=== PATIENT | female | born 1980 | race Caucasian/White ===

== ENCOUNTER 2024-10-09 15:57 | Outpatient (CLI) | payer BC, SELFPAY | END 2024-10-09 15:58 | disposition home or self-care (01) | LOC: NFLDREF 10-11 02:40 | PROVIDERS: PCP Physician Assistant Medical; Visit Provider Physician Assistant Medical | DX: R35.0 Frequency of micturition (principal) | CPT/HCPCS: 87086 ==

== ENCOUNTER 2024-10-18 19:17 | Emergency (ER) | payer BC, SELFPAY ==
--- OUTSIDE RECORDS SUMMARY | 2024-10-18 19:20 | XMS_ITS | Encounter Summary ---
[facility] Address [address] [place] [address] Care Team Providers Care Rough Carpenter Name Role Phone No Primary/Referring, Phy Primary Care Provider Unavailable Encounter Details Date Type Department Care Team (Late st Contact Info) Description 12/19/2011 Correspondence None No Primary/Referring, Phy MEDICAL EQUIPMENT PROOF OF DELIVERY Social History Tobacco Use Types Packs/Day Years Used Date Smoking Tobacco: Never Assessed Comments No Sex and Gender Information Value Date Recorded Sex Assigned at Not on file Legal Sex Female 7:12 AM CDT Gender Identity Not on file Sexual Orientation Not on file documented as of this encounter Progress Notes * No Primary/Referring, Phy - 12/19/2011 12:00 AM CDT documented in this encounter Plan of Treatment Not on file documented as of this encounter Visit Diagnoses Not on filedocumented in this encounter Care Teams Rough Carpenter Relationship Specialty Start Date End Date No Primary/Referring, Phy PCP - General 11/19/14 documented as of this encounter
--- OUTSIDE RECORDS SUMMARY | 2024-10-18 19:20 | XMS_ITS | Encounter Summary ---
Author Organization [facility] Address [address] [place] [address] Care Team Providers Care Sheriffs Name Role Phone Anisa Lorenz PA-C Primary Care Provider [phone] No Ref-Primary, Physician Primary Care Provider Kane Louis MD Unavailable [phone] Anisa Lorenz PA-C Unavailable Renee Angeles DIRECTOR GENERAL Primary Care Prov ider Anisa Lorenz PA-C Unavailable Katie Disla MD Unavailable Anisa Lorenz PA-C Unavailable Katie Disla MD Unavailable Reason for Visit * Reason Onset Date Comments MyChart Communication 12/03/2014 refill cyc lobenzaprine Encounter Details Date Type Department Care Team (Late st Contact Info) Description 12/03/2014 MyC Medical Advice [facility] [address] [place] [address] Anisa Lorenz PA-C [address] [facility] [place] [address] [place], [place] [id number] MyChart Communication (refill cyclobenzapr... 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 Gender Identity Not on file Sexual Orientation Not on file documented as of this encounter Plan of Treatment Not on file documented as of this encounter Visit Diagnoses Diagnosis Acute low back pain- Primary Lumbago documented in this encounter Care Teams Sheriffs Relationship Specialty Start Date End Date Anisa Lorenz PA-C PCP - General Physician Retail Brand Ambassador 09/19/13 12/01/17 No Ref-Primary, Physician PCP - General 12/02/17 08/07/18 Anisa Lorenz PA-C [address] [place] [id number] PCP - Assigned PCP 08/18/13 08/23/18 Renee Angeles NP [facility] [address] [place] [address] PCP - General Nurse Practitioner - Adult Health 08/08/18 Kane Louis MD Ophthalmology 12/02/17 Anisa Lorenz PA-C [address] [place] [address] Assigned PCP 08/18/13 11/19/18 Katie Disla MD [address] [facility] [place] [id number] Assigned PCP 11/20/18 11/18/19 Anisa Lorenz PA-C [address] [address] Assigned PCP 11/19/19 07/20/20 Katie Disla MD [address] [facility] [place] [address] Assigned PCP 07/21/20 11/21/21 documented as of this encounter
--- OUTSIDE RECORDS SUMMARY | 2024-10-18 19:20 | XMS_ITS | Encounter Summary ---
Author Organization [facility] Address [address] [place] [address] Care Team Providers Care Manager Residential Name Role Phone No Primary/Referring, Phy Primary Care Provider Unavailable Encounter Details Date Type Department Care Team (Late st Contact Info) Description 09/26/2024 Notes/Orders Security Contact Ish Davalos, IFEOMA, FOREST LANDSCAPE ECOLOGY PROFESSOR [address] [place] [address] Encounter for long-term (current) use of medications (Primary Dx) Social History Tobacco Use Types Packs/Day Years Used Date Smoking Tobacco: Former Smokeless Tobacco: Never Alcohol Use Standard Drinks/Week Comments Not Currently 0 (1 standard drink = 0.6 oz pur e alcohol) AUDIT-C Answer Date Recorded Q1: How often do you have a drink containing alc ohol? 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
--- OUTSIDE RECORDS SUMMARY | 2024-10-18 19:20 | XMS_ITS | Encounter Summary ---
Author Organization [facility] Address [address] [place] [address] Care Team Providers Care Managing Editor Name Role Phone Anisa Lorenz PA-C Primary Care Provider [phone] No Ref-Primary, Physician Primary Care Provider Kane Louis MD Unavailable [phone] Anisa Lorenz PA-C Unavailable Renee Angeles LEAD CARPENTER Primary Care Prov ider Anisa Lorenz PA-C Unavailable Katie Disla MD Unavailable Anisa Lorenz PA-C Unavailable Katie Disla MD Unavailable Reason for Visit * Reason Onset Date Comments Refill Request 11/05/2013 lorazepam Encounter Details Date Type Department Care Team (Late st Contact Info) Description 11/05/2013 MyC Refill [facility] [address] [place] [address] Anisa Lorenz PA-C [address] [facility] [address] [place], [place] [id number] Refill Request (lorazepam) Social History Tobacco Use Types Packs/Day Years Used Date Smoking Tobacco: Former Smokeless Tobacco: Never Comments:quit 2006 Alcohol Use Standard Drinks/Week Comments Yes 0 (1 standard drink = 0.6 oz pur e alcohol) rarely Comments No Sex and Gender Information Value Date Recorded Sex Assigned at Not on file 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 Last OV and filled 10/25/13, qty 30. Unable to refill per SO protocol, to for auth. * Telephone Encounter - Ana Estrada RN - 11/06/2013 10:00 AM CDTMessage from [facility]: Original authorizing provider: Anisa Lorenz PA-C, NORA Bridges would like a refill of the following medications: LORazepam (ATIVAN) 1 MG tablet [Anisa Lorenz PA-C, NORA] Preferred pharmacy: [facility] [address] [address] Comment: documented in this encounter Plan of Treatment Not on file documented as of this encounter Visit Diagnoses Diagnosis ANNA (generalised anxiety disorder) Generalized anxiety disorder documented in this encounter Care Teams Managing Editor Relationship Specialty Start Date End Date Anisa Lorenz PA-C PCP - General Physician Labor Economics Teacher 09/19/13 12/01/17 No Ref-Primary, Physician PCP - General 12/02/17 08/07/18 Anisa Lorenz PA-C [address] [place] [address] PCP - Assigned PCP 08/18/13 08/23/18 Renee Angeles, [facility] [address] [place] [address] PCP - General Nurse Practitioner - Adult Health 08/08/18 Kane Louis MD Ophthalmology 12/02/17 Anisa Lorenz PA-C [address] [place] [address] Assigned PCP 08/18/13 11/19/18 Katie Disla MD [address] [place] [address] Assigned PCP 11/20/18 11/18/19 Anisa Lorenz PA-C [address] [place] [address] Assigned PCP 11/19/19 07/20/20 Katie Disla MD [address] [place] [address] Assigned PCP 07/21/20 11/21/21 documented as of this encounter
--- OUTSIDE RECORDS SUMMARY | 2024-10-18 19:20 | XMS_ITS | Encounter Summary ---
Author Organization [facility] Address [address] [place] [address] Care Team Providers Care Heavy Forger Name Role Phone Criss Pathak MD Primary Care Provider Anisa Lorenz PA-C Primary Care Provider [phone] No Ref-Primary, Physician Primary Care Provider Kane Louis MD Unavailable [phone] Anisa Lorenz PA-C Unavailable Renee Angeles NP Primary Care Prov ider Anisa Lorenz PA-C Unavailable Katie Disla MD Unavailable [phone] Anisa Lorenz PA-C Unavailable [phone] Katie Disla MD Unavailable Encounter Details Date Type Department Care Team (Late st Contact Info) Description 07/25/2013 [facility] [address] [address] Jeancarlos Castellano Social History Tobacco Use Types Packs/Day Years Used Date Smoking Tobacco: Former Smokeless Tobacco: Never Comments:quit 2006 Alcohol Use Standard Drinks/Week Comments Yes 0 (1 standard drink = 0.6 oz pur e alcohol) rarely Comments No Sex and Gender Information Value Date Recorded Sex Assigned at Not on file 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 Sex Female 4:17 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 Gender Identity Not on file Sexual Orientation Not on file documented as of this encounter Plan of Treatment Not on file documented as of this encounter Visit Diagnoses Not on filedocumented in this encounter Care Teams Heavy Forger Relationship Specialty [place] [address] [place] [address] PCP - General Family Practice 08/01/10 09/18/13 Anisa Lorenz PA-C [address] [place] [address] PCP - General Physician Oyster Culturist 09/19/13 12/01/17 No Ref-Primary, Physician PCP - General 12/02/17 08/07/18 Anisa Lorenz PA-C [address] [place] [address] PCP - Assigned PCP 08/18/13 08/23/18 Renee Angeles NP [facility] [address] [place] [address] PCP - General Nurse Practitioner - Adult Health 08/08/18 Kane Louis MD Ophthalmology 12/02/17 Anisa Lorenz PA-C [address] [place] [id number] Assigned PCP 08/18/13 11/19/18 Katie Disla MD [address] [facility] [place] [id number] Assigned PCP 11/20/18 11/18/19 Anisa Lorenz PA-C [address] [address] Assigned PCP 11/19/19 07/20/20 Katie Disla MD [address] [place], [place] [id number] Assigned PCP 07/21/20 11/21/21 documented as of this encounter
--- OUTSIDE RECORDS SUMMARY | 2024-10-18 19:20 | XMS_ITS | Encounter Summary ---
Author Organization [facility] Address [address] [place] [address] Care Team Providers Care Paper Products Supervisor Name Role Phone Anisa Lorenz PA-C Primary Care Provider [phone] No Ref-Primary, Physician Primary Care Provider Kane Louis MD Unavailable [phone] Anisa Lorenz PA-C Unavailable Renee Angeles CARE MANAGER Primary Care Prov ider Anisa Lorenz PA-C Unavailable Katie Disla MD Unavailable Anisa Lorenz PA-C Unavailable Katie Disla MD Unavailable Reason for Visit * Reason Onset Date Comments MyChart Communication 10/13/2013 zoloft Encounter Details Date Type Department Care Team (Late st Contact Info) Description 10/13/2013 MyC Medical Advice [facility] [address] [place] [address] Anisa Lorenz PA-C [address] [facility] [address] [place], [place] [address] MyChart Communication (zoloft) 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 Gender Identity Not on file Sexual Orientation Not on file documented as of this encounter Plan of Treatment Not on file documented as of this encounter Visit Diagnoses Not on filedocumented in this encounter Care Teams Paper Products Supervisor Relationship Specialty Start Date End Date Anisa Lorenz PA-C PCP - General Physician In Service Educator 09/19/13 12/01/17 No Ref-Primary, Physician PCP - General 12/02/17 08/07/18 Anisa Lorenz PA-C [address] [place] [id number] PCP - Assigned PCP 08/18/13 08/23/18 Renee Angeles NP [facility] [address] [place] [id number] PCP - General Nurse Practitioner - Adult Health 08/08/18 Kane Louis MD Ophthalmology 12/02/17 Anisa Lorenz PA-C [address] [place] [address] Assigned PCP 08/18/13 11/19/18 Katie Disla MD [address] [facility] [place] [address] Assigned PCP 11/20/18 11/18/19 Anisa Lorenz PA-C [address] [facility] [facility] [address] [place] [address] Assigned PCP 11/19/19 07/20/20 Katie Disla MD [facility] [facility] [address] Assigned PCP 07/21/20 11/21/21 documented as of this encounter
--- OUTSIDE RECORDS SUMMARY | 2024-10-18 19:20 | XMS_ITS | Encounter Summary ---
Author Organization [facility] Address [address] [place] [address] Care Team Providers Care Drying Machine Operator Name Role Phone No Primary/Referring, Phy Primary Care Provider Unavailable Encounter Details Date Type Department Care Team (Late st Contact Info) Description 10/03/2024 11:10 AM CDT Lab Visit Laboratory at [facility] [id number] [place] [phone] Encounter for long-term (current) use of medications Social History Tobacco Use Types Packs/Day Years [...] on file documented as of this encounter Procedures Procedure Name Priority Date/Time Associated Diagnosis Comments RAPID DRUG PANEL, URINE Routine 10/03/2024 11:05 AM CDT Encounter for long-term (current) use of medications documented in this encounter Results * (ABNORMAL) Rapid Drug Panel, Urine with THC (10/03/2024 11:05 AM CDT) [facility] Amphetamines Screen Not Detected Not Detected 10/04/2024 7:00 AM [facility] Barbiturates Screen Not Detected Not Detected 10/04/2024 7:00 AM [facility] Benzodiazepines Screen Presumptive Positive(A) Not Detected 10/04/2024 7:00 AM [facility] Buprenorphine Screen Not Detected Not Detected 10/04/2024 7:00 AM [facility] Cocaine Metabolite Screen Not Detected Not Detected 10/04/2024 7:00 AM [facility] Methadone Screen Not Detected Not Detected 10/04/2024 7:00 AM [facility] Opiates Screen Not Detected Not Detected 10/04/2024 7:00 AM [facility] Oxycodone Screen Not Detected Not Detected 10/04/2024 7:00 AM [facility] Phencyclidine (PCP) Screen Not Detected Not Detected 10/04/2024 7:00 AM [facility] THC (Marijuana) Metab Screen Not Detected Not Detected 10/04/2024 7:00 AM [facility] Creatinine, Urine, Random 170 >20 mg/dL 10/04/2024 7:00 AM [facility] Urine Non-blood Collection / Unknown 10/03/2024 11:05 AM T 10/03/2024 11:05 AM [facility] - 10/04/2024 7:00 AM [facility] The absence of expected drug(s) and/or drug metabolite(s) may indicate non-compliance, inappropriate timing of specimen collection relative to drug administration, poor drug absorption, diluted/adulterated urine or limitations of testing. The concentration must be greater than or equal to the cutoff concentration to be reported as positive. For medical purposes only: not valid for forensic, legal, or employment use. us Ish Davalos PUBLIC AID ELIGIBILITY ASSISTANT, WILDLAND FIRE FIGHTER SPECIALIST LAB_[address] Final Result [address] [address], [facility] documented in this encounter Visit Diagnoses Diagnosis Encounter for long-term (current) use of medications Encounter for long-term (current) use of other medications documented in this encounter Care Teams Drying Machine Operator Relationship Specialty Start Date End Date No Primary/Referring, Phy PCP - General 11/19/14 documented as of this encounter
--- OUTSIDE RECORDS SUMMARY | 2024-10-18 19:20 | XMS_ITS | Encounter Summary ---
Author Organization [facility] Address [address] [place] [address] Care Team Providers Care Carpenter Maintenance Name Role Phone Criss Pathak MD Primary Care Provider [phone] Anisa Lorenz PA-C Primary Care Provider [phone] No Ref-Primary, Physician Primary Care Provider Kane Louis MD Unavailable [phone] Anisa Lorenz PA-C Unavailable Renee Angeles NP Primary Care Prov ider Anisa Lorenz PA-C Unavailable Katie Disla MD Unavailable Anisa Lorenz PA-C Unavailable [phone] Katie Disla MD Unavailable Encounter Details Date Type Department Care Team (Late st Contact Info) Description 02/10/2011 [facility] [address] [address] Jeancarlos Castellano Social History Tobacco Use Types Packs/Day Years Used Date Smoking Tobacco: Former Smokeless Tobacco: Never Comments:quit 2006 Alcohol Use Standard Drinks/Week Comments Yes 0 (1 standard drink = 0.6 oz pur e alcohol) rarely Comments No Sex and Gender Information Value Date Recorded Sex Assigned at Not on file 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 Gender Identity Not on file Sexual Orientation Not on file documented as of this encounter Plan of Treatment Not on file documented as of this encounter Visit Diagnoses Not on filedocumented in this encounter Care Teams Carpenter Maintenance Relationship Specialty [place] [address] [place] [address] PCP - General Family Practice 08/01/10 09/18/13 Anisa Lorenz PA-C [address] [place] [address] PCP - General Physician English Composition Instructor 09/19/13 12/01/17 No Ref-Primary, Physician PCP - General 12/02/17 08/07/18 Anisa Lorenz PA-C [address] [place] [address] PCP - Assigned PCP 08/18/13 08/23/18 Renee Angeles NP [facility] [address] [place] [address] PCP - General Nurse Practitioner - Adult Health 08/08/18 Kane Louis MD Ophthalmology 12/02/17 Anisa Lorenz PA-C [address] [place] [id number] Assigned PCP 08/18/13 11/19/18 Katie Disla MD [address] [facility] [place] [id number] Assigned PCP 11/20/18 11/18/19 Anisa Lorenz PA-C [address] [address] Assigned PCP 11/19/19 07/20/20 Katie Disla MD [address] [place], [place] [id number] Assigned PCP 07/21/20 11/21/21 documented as of this encounter
--- OUTSIDE RECORDS SUMMARY | 2024-10-18 19:20 | XMS_ITS | Encounter Summary ---
Author Organization [facility] Address [address] [place] [address] Care Team Providers Care Heatset Winder Operator Name Role Phone Anisa Lorenz PA-C Primary Care Provider [phone] No Ref-Primary, Physician Primary Care Provider Kane Louis MD Unavailable [phone] Anisa Lorenz PA-C Unavailable Renee [place] FARM ADVISOR Primary Care Prov ider Anisa Lorenz PA-C Unavailable Katie Disla MD Unavailable Anisa Lorenz PA-C Unavailable Katie Disla MD Unavailable Reason for Referral * Consultation - Closed Specialty Diagnoses / Procedures Referred By Jan clay Referred To Contact Diagnoses Biliary colic Anisa Lorenz PA-C Phone: tel: fax: [facility] [address] Phone: tel: fax: Referral ID Status Reason Start Date Expiration Date Visits Re quested Visits Authorized [id number] Closed 11/29/2015 11/28/2016 1 1 Comments Your provider has referred you to Gastroenterology Services. Procedure/Referral: REFERRAL ONLY - FMG: [facility] (Abby partners with [facility] ([facility]) for consults and referrals. This order will be routed to [facility] for their office to contact the patient to arrange a future appointment. Patients may contact [facility] after 48 hours, if you have not been contacted) - [email or web address]/ Please be aware that coverage of these services is subject to the terms and limitations of your health insurance plan. Call member services at your health plan with any benefit or coverage questions. Any procedures must be performed at a [facility] facility OR coordinated by your clinic's referral office. Please bring the following with you to your appointment: (1) Any X-Rays, CTs or MRIs which have been performed. Contact the facility where they were done to arrange for miner pick prior to your scheduled appointment. Any new CT, MRI or other procedures ordered by your specialist must be performed at a [facility] facility or coordinated by your clinic's referral office. (2) List of current medications (3) This referral request (4) Any documents/labs given to you for this referral Reason for Visit * Reason Onset Date Comments MyChart Communication 11/28/2015 Abdominal pain Encounter Details Date Type Department Care Team (Late st Contact Info) Description 11/28/2015 [facility] Medical Advice [address] [address] Anisa Lorenz PA-C [address] [address] Karley Communication (Abdominal pain) 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 Pathak's note below. Gail Hernadez RN, BSN * Telephone Encounter - Criss Pathak MD - 11/28/2015 3:21 PM CDT Ask if this can wait until tomorrow. Until CJ is back. Criss Pathak MD [facility] [phone] * Telephone Encounter - Lilibeth Hernadez RN - 11/28/2015 2:26 PM CDT Routing to Dr. Pathak to advise in the absence of CJ: Please review/advise on pt's Facet Decision Systemst message. Pt was seen 11/20/15 for abdominal pain, looks like US and labs came back normal. Pt started on Zantac, still experiencing abdominal pain. Please advise ifthis can wait for Anisa when back in office tomorrow or if you have any f/u recommendations. Thanks! Gail Hernadez RN, BSN documented in this encounter Plan of Treatment Scheduled Referrals Name Type Priority Associated Diagnoses Orde r Schedule GASTROENTEROLOGY ADULT REFERRAL +/- PROCEDURE Referral Routine Biliary colic Ordered: 11/29/2015 documented as of this encounter Visit Diagnoses Diagnosis Biliary colic- Primary Calculus of gallbladder without mention of cholecystitis or obstruction documented in this encounter Additional Health Concerns Assessment Noted Time PHQ-9 Depression Total Score: 0 07/26/19 16 7:58 AM CHURN DRILLER documented as of this encounter Care Teams Heatset Winder Operator Relationship Specialty Start Date End Date Anisa Lorenz PA-C PCP - General Physician Dietetic Technician Registered 09/19/13 12/01/17 No Ref-Primary, Physician PCP - General 12/02/17 08/07/18 Anisa Lorenz PA-C [address] [place], [place] [id number] PCP - Assigned PCP 08/18/13 08/23/18 Renee Angeles, [facility] [address] [address] PCP - General Nurse Practitioner - Adult Health 08/08/18 Kane Louis MD Ophthalmology 12/02/17 Anisa Lorenz PA-C [address] [place] [address] Assigned PCP 08/18/13 11/19/18 Katie Disla MD [address] [place] [address] Assigned PCP 11/20/18 11/18/19 Anisa Lorenz PA-C [address] [place] [address] Assigned PCP 11/19/19 07/20/20 Katie Disla MD [address] [place] [address] Assigned PCP 07/21/20 11/21/21 documented as of this encounter
--- OUTSIDE RECORDS SUMMARY | 2024-10-18 19:20 | XMS_ITS | Encounter Summary ---
Author Organization [facility] Address [address] [place] [address] Care Team Providers Care Accounts Payable Technician Name Role Phone Anisa Lorenz PA-C Primary Care Provider [phone] No Ref-Primary, Physician Primary Care Provider Kane Louis MD Unavailable [phone] Anisa Lorenz PA-C Unavailable Renee Angeles SAMPLE GRADER Primary Care Prov ider Anisa Lorenz PA-C Unavailable Katie Disla MD Unavailable Anisa Lorenz PA-C Unavailable Katie Disla MD Unavailable Reason for Visit * Reason Onset Date Comments Refill Request 01/08/2015 Roxanna Dodson Encounter Details Date Type Department Care Team (Late st Contact Info) Description 01/08/2015 [facility] Refill [facility] [address] [place] [address] Anisa Lorenz PA-C [address] [place], [place] [address] Refill Request (Roxanna Dodson) 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 * Telephone Encounter - Maikel Cullen RN - 01/08/2015 2:18 PM CDTMessage from [facility]: Original authorizing provider: Anisa Lorenz PA-C, NORA Funes Cyrus would like a refill of the following medications: lidocaine-prilocaine (EMLA) cream [Anisa Lorenz PA-C, NORA] oxyCODONE-acetaminophen (PERCOCET) 5-325 MG per tablet [Anisa Lorenz PA-C, NORA] Preferred pharmacy: [facility] [address] Comment: Brandon Lorenz- I have my first [facility] appointment next Wednesday. I'm really, really excited. I was told it should only take 3 (4 max) sessions to fully remove my arm band. The other will only take 1 treatment! I have no idea how bad the pain is going to be with this laser. I'm refilling the perocet just because I don't know how this laser is going to feel (I was told this one is a bit worse). I will keep you posted!!! documented in this encounter Plan of Treatment Not on file documented as of this encounter Visit Diagnoses Diagnosis Exposure to laser radiation, subsequent encounter documented in this encounter Care Teams Accounts Payable Technician Relationship Specialty Start Date End Date Anisa Lorenz PA-C PCP - General Physician Occupational Health And Safety Adviser 09/19/13 12/01/17 No Ref-Primary, Physician PCP - General 12/02/17 08/07/18 Anisa Lorenz PA-C [address] [place], [place] [id number] PCP - Assigned PCP 08/18/13 08/23/18 Renee Angeles, [facility] [address] [address] PCP - General Nurse Practitioner - Adult Health 08/08/18 Kane Louis MD MD Ophthalmology 12/02/17 Anisa Lorenz, PA-C [address] [place] [address] Assigned PCP 08/18/13 11/19/18 Katie Disla MD [address] [place] [address] Assigned PCP 11/20/18 11/18/19 Anisa Lorenz, PA-C [address] [place] [address] Assigned PCP 11/19/19 07/20/20 Katie Disla MD [address] [place] [address] Assigned PCP 07/21/20 11/21/21 documented as of this encounter
--- OUTSIDE RECORDS SUMMARY | 2024-10-18 19:20 | XMS_ITS | Clinical Summary ---
Author Organization [facility] Address [address] [place] [address] Care Team Providers Care Bpm Architect Name Role Phone No Primary/Referring, Phy Primary Care Provider Unavailable Source Comments You are receiving this document as you are listed as the primary care provider,follow-up provider, or the patient has been referred to you for consultation.This is in compliance with the Medicare andMedicaid EHR Incentive Program,which states Providers who transition their patient to another setting of careor provider of care or refers their patient to another provider of care shouldprovide summary care record for each transition of care or referral. [employer] Allergies Active Allergy Reactions Criticality Noted Date Comments Fluoxetine Confusion 09/04/2002 PN: LW Reaction: panic attacks, decrease sleep Serotonin syndrome Promethazine Hcl Other, see comments 09/29/2005 anxiety, paranoia Prochlorperazine Other, see comments,Hives High 09/29/2005 anxiety, paranoia Phenagran--anxiety anxiety, paranoia Phenagran--anxiety Phenagran--anxiety Promethazine Hives,Other, see comments High 09/04/2002 PN: LW Reaction: panic attacks anxiety, paranoia Medications diazePAM (VALIUM) 10 MG tablet Take 1.5 Tablets (15 mg) by mouth at bedtime as needed. Active metoprolol tartrate (LOPRESSOR) 25 MG tablet Take 12.5 mg in the AM and 25 mg in the PM 135 Tablet 11 12/31/2020 Active amphetamine-dex troamphetamine (ADDERALL) 10 MG tablet Take 1 Tablet (10 mg) by mouth as needed. 09/01/2022 Active amoxicillin-cla vulanate (AUGMENTIN) 875-125 mg per tablet Take 1 Tablet by mouth two times a day. 03/11/2024 Active butalbital-acet aminophen-caffe ine (FIORICET) 50-325-40 MG tablet Take by mouth. 03/16/2024 Active cyclobenzaprine (FLEXERIL) 10 MG tablet Take 1 Tablet (10 mg) by mouth daily at bedtime. 01/18/2024 Active triamcinolone acetonide (KENALOG) 0.1 % paste Place onto teeth. 10/25/2023 Active diazePAM (VALIUM) 5 MG tablet Take 2 Tablets (10 mg) by mouth two times a day. 02/22/2024 Active amphetamine-dex troamphetamine (ADDERALL) 5 MG tablet Take 1 Tablet (5 mg) by mouth two times a day. 02/18/2024 Active amphetamine-dex troamphetamine (ADDERALL) 20 MG tablet Take 1 Tablet (20 mg) by mouth daily. 11/10/2023 Active Semaglutide (OZEMPIC, 0.25 OR 0.5 MG/DOSE, SC) Active ciprofloxacin-h ydrocortisone (CIPRO HC OTIC) 0.2-1 % ear drop suspensionnIndi cations:Acute diffuse otitis externa of both ears Place 3 Drops into both ears two times a day. 10 mL 03/16/2024 Active gabapentin (NEURONTIN) 100 MG capsule Take 1-3 Capsules (100-300 mg) by mouth three times a day. 90 Capsule 05/20/2024 Active tiZANidine (ZANAFLEX) 2 MG tablet Take 1-2 Tablets (2-4 mg) by mouth every 8 hours as needed (back pain, muscle spasm). 20 Tablet 05/20/2024 Active Active Problems Problem Noted Date Diagnosed Date Paroxysmal atrial fibrillation 12/11/2020 Elevated blood pressure read ing without diagnosis of hypertension 12/11/2020 ANNA (generalized anxiety disorder) 12/11/2020 Other chronic pain 04/29/2015 Anxiety 01/16/2013 Lumbago 12/17/2008 Overview (02/10/2017): Pain Low Back Attention deficit disorder 08/17/2007 Pain in thoracic spine 08/17/2007 Overview (02/10/2017): Pain Back Thoracic Migraine headache 03/03/2001 Overview (11/19/2022): (Problem list name updated by automated process. Provider to review and confirm.) Encounters Date Type Department Care Team Description 10/03/2024 11:10 AM CDT Lab Visit Laboratory at [address] [address] Encounter for long-term (current) use of medications 09/26/2024 Notes/Orders Security Contact Ish Davalos, MOVING WORKER, POLYGRAPH EXAMINER Encounter for long-term (current) use of medications (Primary Dx) from Last 3 Months Immunizations Immunization Administration Dates Next Due MMR 02/05/1992 TDAP (ADACEL) 03/21/2008 Tdap 07/20/2012 Social History Tobacco Use Types Packs/Day Years [...] Not on file N ot on file Last Filed Vital Signs Vital Sign Reading Time Taken Comments Blood Pressure 117/95 03/16/2024 8:11 PM CDT Pulse 104 03/16/2024 8:11 PM CDT Temperature 36.9 C (98.5 F) 05/20/2024 12:45 PM ASSEMBLER FAUCETS Respiratory Rate 17 03/16/2024 7:32 PM CDT Oxygen Saturation 100% 03/16/2024 7:32 PM CDT Inhaled Oxygen Concentration - - Weight 63 kg (139 lb) 05/20/2024 12:45 PM ASSEMBLER FAUCETS Height 160 cm (5' 3) 05/20/2024 12:45 PM ASSEMBLER FAUCETS Body Mass Index 24.62 05/20/2024 12:45 PM ASSEMBLER FAUCETS Plan of Treatment Health Maintenance Due Date Last Done Comments Colon Cancer Screening Plan Due 1979 Hep C Screening (Preventive Services) 1979 Adult Preventive Visit 1997 HepB Vaccine (1) 1998 Cervical Cancer Screening Due 01/31/2008 01/30/2008 DTaP/Tdap/Td Vaccine (3 - Tdap) 07/20/2022 07/20/2012, 03/21/2008 Mammogram 03/03/2023 03/03/2022, 01/25/2015 Cholesterol 02/18/2024 06/07/2006, 09/29/2005, 08/12/2005 COVID-19 Vaccine (3 - 2023-2 5 season) 2024 10/23/2020, 08/19/2020 Influenza Vaccine (#1) 2024 Zoster/Shingles Vaccine (1 o f 2) 2029 HIV Screening (Preventive Services) Completed 08/19/2005 HPV Vaccine Aged Out No longer eligi ble based on patient's age to complete this topic HepA Vaccine Aged Out No longer eligi ble based on patient's age to complete this topic Hib Vaccine Aged Out No longer eligi ble based on patient's age to complete this topic IPV (Polio) Vaccine Aged Out No longe r eligible based on patient's age to complete this topic MCV4 Vaccine Aged Out No longer eligi ble based on patient's age to complete this topic Meningococcal B Vaccine Aged Out No l onger eligible based on patient's age to complete this topic Pneumococcal Vaccine Aged Out No long er eligible based on patient's age to complete this topic Procedures Procedure Name Priority Date/Time Associated Diagnosis Comments RAPID DRUG PANEL, URINE Routine 10/03/2024 11:05 AM CDT Encounter for long-term (current) use of medications ANATOMICAL PATH LIQUID BASED Routine 01/30/2008 9:32 AM CDT LIPID PANEL & DIRECT LDL (IF NEEDED) Routine 06/07/2006 10:55 AM ASSEMBLER FAUCETS HIV ANTIBODY Routine 08/19/2005 7:35 AM ASSEMBLER FAUCETS from Last 3 Months or Most Recently Relevant to Health Maintenance Results * (ABNORMAL) Rapid Drug Panel, Urine with THC (10/03/2024 11:05 AM CDT) [facility] Amphetamines Screen Not Detected Not Detected 10/04/2024 7:00 AM [facility] Barbiturates Screen Not Detected Not Detected 10/04/2024 7:00 AM [facility] Benzodiazepines Screen Presumptive Positive(A) Not Detected 10/04/2024 7:00 AM [facility] Buprenorphine Screen Not Detected Not Detected 10/04/2024 7:00 AM [facility] Cocaine Metabolite Screen Not Detected Not Detected 10/04/2024 7:00 AM [facility] Methadone Screen Not Detected Not Detected 10/04/2024 7:00 AM [facility] Opiates Screen Not Detected Not Detected 10/04/2024 7:00 AM [facility] Oxycodone Screen Not Detected Not Detected 10/04/2024 7:00 AM [facility] Phencyclidine (PCP) Screen Not Detected Not Detected 10/04/2024 7:00 AM [facility] THC (Marijuana) Metab Screen Not Detected Not Detected 10/04/2024 7:00 AM [facility] Creatinine, Urine, Random 170 >20 mg/dL 10/04/2024 7:00 AM [facility] Urine Non-blood Collection / Unknown 10/03/2024 11:05 AM CDT 10/03/2024 11:05 AM [facility] - 10/04/2024 7:00 AM CDT The absence of expected drug(s) and/or drug metabolite(s) may indicate non-compliance, inappropriate timing of specimen collection relative to drug administration, poor drug absorption, diluted/adulterated urine or limitations of testing. The concentration must be greater than or equal to the cutoff concentration to be reported as positive. For medical purposes only: not valid for forensic, legal, or employment use. us Ish Davalos APRN, POLYGRAPH EXAMINER LAB_1 [place] [address], [facility] * Pap Smear (01/30/2008 9:32 AM CDT) PAP Smear Liquid Based SEE TEXT No normal range HP CONVERSION Comment: Patient: ROSALIEN BRIDGES CERVICAL CYTOLOGY REPORT Pathology # [id number] Date Obtained: Date Received: CYTOLOGIC IMPRESSION: Negative for intraepithelial lesion or malignancy. Verified 02/02/08 by: MADISON (electronic signature) ADDITIONAL DATA LMP: CLINICAL HIST LIQUID BASED PAP CERVICAL SPECIMEN ADEQUACY: Satisfactory. ENDOCERVICAL CELLS: Present. 01/30/2008 9:32 AM CDT Ish Escobar MD LAB_1 Final Result HP CONVERSION * Lipid Panel and Direct LDL(If Needed) (06/07/2006 10:55 AM ASSEMBLER FAUCETS) Cholesterol/HDL Ratio Screen 3.1 No normal range HP CONVERSION Cholesterol 156 <200 mg/dL HP CONVERSION HDL Cholesterol 51 40 - 60 mg/dL HP CONVERSION Triglycerides 54 0 - 149 mg/dL HP CONVERSION LDL Calculated 94 0 - 130 mg/dL HP CONVERSION Comment: 06/07/2006 10:5 5 AM ASSEMBLER FAUCETS Ish Flores MD LAB_1 Final Result Performing Organization Address City/State/[facility] Co de Phone Number HP CONVERSION * HIV 1/2 ANTIBODY (08/19/2005 7:35 AM ASSEMBLER FAUCETS) HIV 1/2 Antibody Non-React hugo NR REGIONS Comment:Performed at [facility] 08/19/2005 7:35 AM ASSEMBLER FAUCETS 08/19/2005 7:49 AM ASSEMBLER FAUCETS Keiko Albright PA-C LAB_1 Final Result [place], [place] [phone] from Last 3 Months or Most Recently Relevant to Health Maintenance Care Teams Bpm Architect Relationship Specialty Start Date End Date No Primary/Referring, Phy PCP - General 11/19/14
--- OUTSIDE RECORDS SUMMARY | 2024-10-18 19:20 | XMS_ITS | Patient Health Record ---
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 Name Role Phone Renee Angeles Primary Care Provider Ritesh Dodd Unavailable [phone] Kelechi Malik Unavailable [phone] Regina Roy Unavailable [phone] Chris Marmolejo Unavailable [phone] Key Medina Unavailable [phone] Nadira Gilbert Unavailable [phone] Nia Sam Unavailable [phone] Chris Allen Unavailable [phone] Allergies Allergen (clinical drug ingredient) Drug/Non Drug Allergy documented on EMR Reaction Allergy Type Onset Date Status Compazine (uncoded) Hives Allergy Active promethazine Phenergan (uncoded) Hives Allergy Active Substance with serotonin re-uptake inhibitor mechanism of action (substance) SSRI's (uncoded) Seretonin Syndrome Allergy Active Reason For Referral Reason REHAB PT and OT: MED X CERVICAL-LUMBAR Diagnosis 1 Low back pain, unspe cified (M54.50) Diagnosis 2 Radiculopathy, lumba r region (M54.16) Diagnosis 3 Pain in thoracic spi ne (M54.6) Diagnosis 4 Cervicalgia (M54.2) Diagnosis 5 Cervicogenic headach e (G44.86) Diagnosis 6 Migraine without aur a and without status migrainosus, not intractable (G43.009) Referral Organization [facility] Referring Provider First Name Ritesh Referring Provider Last Name Jose Referring Provider Speciality Occupation al Medicine Referred Organization [facility] Referred Provider Carol Mayer Referred Address [address], [place],[address], Referred Provider Specialty Rehabilitati on General Notes Lucero Dumont 05/25/20 10:43:01 AM >HP no PA req. OK to schedule, Trixie Sanchez 05/25/2024 10:51:31 AM >Pt scheduled Referral Priority Routine Medications Medication SIG (Take, Route, Frequency, Duration) Notes Start Date End Date Status Testosterone 25 MG/2.5GM (1%) 2 packets to skin in the morning to shoulder, upper arms or abdomen Transdermal Once a day Active diazePAM 20 MG as directed Rectal Active Metoprolol Succinate 25 MG 1 capsule Orally Once a day Active Acetaminophen-Codeine #3 Not-Taking Social History Tobacco Use: Social History Observation Description Date Details (start date - stop date) Never Smoker NA - NA Tobacco Control (Standard) Question Answer Notes Tobacco use: Nonsmoker AUDIT-C (Standard) Question Answer Notes Did you have a drink contain ing alcohol in the past year? Yes How often did you have six o r more drinks on one occasion in the past year? Less than monthly (1 point) How many drinks did you have on a typical day when you were drinking in the past year? 1 or 2 drinks (0 point) How often did you have a dri nk containing alcohol in the past year? Monthly or less (1 point) Points 2 Interpretation Negative Problems Problem Type SNOMED Code ICD Code Onset Dates Problem Status W/U Status Risk Notes Problem Migraine with aura (9756752) Migraine with aura, not intractable, without status migrainosus (G43.109) Active confirmed Problem Scoliosis (520982199) Scoliosis, unspecified (M41.9) Active confirmed Problem Lumbar radiculopathy (161664433) Radiculopathy, lumbar region (M54.16) Active confirmed Problem Cervicalgia (48933959) Cervicalgia (M54.2) Active confirmed Problem Pain in thoracic spine (695469468) Pain in thoracic spine (M54.6) Active confirmed Problem Spasm of back muscles (949269088) Muscle spasm of back (M62.830) Active confirmed Problem Cervicogenic headache (141568766) Cervicogenic headache (G44.86) Active confirmed Problem Low back pain (605599558) Low back pain, unspecified (M54.50) Active confirmed Problem Migraine without aura, not refractory (583776266) Migraine without aura and without status migrainosus, not intractable (G43.009) Active confirmed Vital Signs Blood pressure diastolic 86 mm Hg 05/22/2024 Height 62 in 05/22/2024 Blood pressure systolic 130 mm Hg 05/22/2024 Encounters Encounter Location Date Provider Diagnosis [facility] [address] [place] [address] [address] [place] [address] 05/16/2024 Kelechi Malik [facility] [address] [place] [address] [address] [place] [address] 05/23/2024 Ritesh [employer] [facility] [address] [place] [address] 05/29/2024 Ritesh [employer] [facility] [address] [place] [address] 06/07/2024 Ritesh Jose [facility] [address] [place] [address] [address] [facility] [place] [address] 06/22/2024 Ritesh Jose [facility] [address] [place] [address] [address] [place] [address] 06/23/2024 [employer] [facility] [address] [place] [address] 07/10/2024 [employer] [facility] [address] [place] [address] 07/10/2024 [employer] [facility] [address] [place] [address] 06/05/2024 Nadira Gilbert Low back pain, unspecified M54.50 ; Cervicalgia M54.2 ; Pain in thoracic spine M54.6 and Cervicogenic headache G44.86 [address] [facility] [address] [place] [address] 05/22/2024 Ritesh Garcia Low back pain, unspecified M54.50 ; Radiculopathy, lumbar region M54.16 ; Pain in thoracic spine M54.6 ; Cervicalgia M54.2 ; Cervicogenic headache G44.86 ; Migraine with aura, not intractable, without status migrainosus G43.109 ; Muscle spasm of back M62.830 and Scoliosis, unspecified M41.9 [facility] [address] [address] [facility] [place] [address] 05/29/2024 Key Medina Low back pain, unspecified M54.50 ; Cervicalgia M54.2 ; Pain in thoracic spine M54.6 and Cervicogenic headache G44.86 [facility] [address] [facility] [address] 06/09/2024 Chris Marmolejo Low back pain, unspecified M54.50 ; Cervicalgia M54.2 ; Pain in thoracic spine M54.6 and Cervicogenic headache G44.86 Assessments Encounter Date Diagnosis (ICD Code) Assessment Notes Treatment Notes Treatment Clinical Notes Section Notes 05/22/2024 Low back pain, unspecified (ICD-10 - M54.50) 1. I believe Rosaline is an excellent candidate for the type of treatment available here at [facility]. I believe she will benefit from core and deep core muscle strength building to support the spine. We will utilize our MedX equipment to isolate on critical muscle groups to achieve, first, muscle re-education, recruitment and activation, and then strength. Range of motion and strength will be measured objectively, and the patient will work towards resistance goals calculated for them by the therapists. 2. Rosaline has occipital headaches that probably have a cervicogenic component. she will benefit from a complete headache evaluation in conjunction with MedX-based cervical core muscle strength building, stretching and improved posture. Manual therapy techniques will be attempted. The patient can be taught self-care techniques that will allow for self-headache management in the future. 3. Rosaline also has a migraine headache syndrome in addition to occipital headaches. 4. Rosaline has prominent trigger points in the cervical and scapulothoracic regions. In addition to stretching, strength building and postural improvements, she will likely benefit from certain manual therapy techniques. This includes teaching the patient to perform their own manual therapies for future self-management of symptoms. 5. Rosaline is suffering from back spasms at this time. 6. Both physical therapists and occupational therapists will have input into developing the patient's plan of care. This will be an active biopsychosocial care approach. In some cases, we will utilize a cognitive-behavio ral coaching emphasis. 7. Rosaline has long-standing intermittent low back pain. She has high levels of symptoms at this time. I do recommend MRI scanning at this time. 8. In addition to strength building during appointment times, the patient will be provided a home exercise progression tailored to their needs. The goal will be to further improve functional mobility, strength, endurance and in some cases balance. The need for an aftercare exercise program will be addressed to help the patient maintain benefits gained during their course of treatment. 9. Today's evaluation occupied a full 40 minutes altogether including time spent preparing to see the patient and then providing this documentation. Multiple conditions were evaluated. Other program topics and elements may include: 1. Instruction in body mechanics, ergonomics, and functional training. 2. Pain neuroscience. 3. Sleep and diet. 4. Non-pharmacologic pain management. 5. Manual therapy techniques including self-care. 6. Meditation techniques such as conscious napping. 06/09/2024 Low back pain, unspecified (ICD-10 - M54.50) 06/05/2024 Low back pain, unspecified (ICD-10 - M54.50) 05/29/2024 Low back pain, unspecified (ICD-10 - M54.50) 05/29/2024 Cervicalgia (ICD-10 - M54.2) 06/05/2024 Cervicalgia (ICD-10 - M54.2) 06/09/2024 Cervicalgia (ICD-10 - M54.2) 05/22/2024 Radiculopathy, lumbar region (ICD-10 - M54.16) 1. I believe Rosaline is an excellent candidate for the type of treatment available here at [facility]. I believe she will benefit from core and deep core muscle strength building to support the spine. We will utilize our MedX equipment to isolate on critical muscle groups to achieve, first, muscle re-education, recruitment and activation, and then strength. Range of motion and strength will be measured objectively, and the patient will work towards resistance goals calculated for them by the therapists. 2. Rosaline has occipital headaches that probably have a cervicogenic component. she will benefit from a complete headache evaluation in conjunction with MedX-based cervical core muscle strength building, stretching and improved posture. Manual therapy techniques will be attempted. The patient can be taught self-care techniques that will allow for self-headache management in the future. 3. Rosaline also has a migraine headache syndrome in addition to occipital headaches. 4. Rosaline has prominent trigger points in the cervical and scapulothoracic regions. In addition to stretching, strength building and postural improvements, she will likely benefit from certain manual therapy techniques. This includes teaching the patient to perform their own manual therapies for future self-management of symptoms. 5. Rosaline is suffering from back spasms at this time. 6. Both physical therapists and occupational therapists will have input into developing the patient's plan of care. This will be an active biopsychosocial care approach. In some cases, we will utilize a cognitive-behavio ral coaching emphasis. 7. Rosaline has long-standing intermittent low back pain. She has high levels of symptoms at this time. I do recommend MRI scanning at this time. 8. In addition to strength building during appointment times, the patient will be provided a home exercise progression tailored to their needs. The goal will be to further improve functional mobility, strength, endurance and in some cases balance. The need for an aftercare exercise program will be addressed to help the patient maintain benefits gained during their course of treatment. 9. Today's evaluation occupied a full 40 minutes altogether including time spent preparing to see the patient and then providing this documentation. Multiple conditions were evaluated. Other program topics and elements may include: 1. Instruction in body mechanics, ergonomics, and functional training. 2. Pain neuroscience. 3. Sleep and diet. 4. Non-pharmacologic pain management. 5. Manual therapy techniques including self-care. 6. Meditation techniques such as conscious napping. 06/09/2024 Pain in thoracic spine (ICD-10 - M54.6) 06/05/2024 Pain in thoracic spine (ICD-10 - M54.6) 05/29/2024 Pain in thoracic spine (ICD-10 - M54.6) 05/22/2024 Pain in thoracic spine (ICD-10 - M54.6) 1. I believe Rosaline is an excellent candidate for the type of treatment available here at [facility]. I believe she will benefit from core and deep core muscle strength building to support the spine. We will utilize our MedX equipment to isolate on critical muscle groups to achieve, first, muscle re-education, recruitment and activation, and then strength. Range of motion and strength will be measured objectively, and the patient will work towards resistance goals calculated for them by the therapists. 2. Rosaline has occipital headaches that probably have a cervicogenic component. she will benefit from a complete headache evaluation in conjunction with MedX-based cervical core muscle strength building, stretching and improved posture. Manual therapy techniques will be attempted. The patient can be taught self-care techniques that will allow for self-headache management in the future. 3. Rosaline also has a migraine headache syndrome in addition to occipital headaches. 4. Rosaline has prominent trigger points in the cervical and scapulothoracic regions. In addition to stretching, strength building and postural improvements, she will likely benefit from certain manual therapy techniques. This includes teaching the patient to perform their own manual therapies for future self-management of symptoms. 5. Rosaline is suffering from back spasms at this time. 6. Both physical therapists and occupational therapists will have input into developing the patient's plan of care. This will be an active biopsychosocial care approach. In some cases, we will utilize a cognitive-behavio ral coaching emphasis. 7. Rosaline has long-standing intermittent low back pain. She has high levels of symptoms at this time. I do recommend MRI scanning at this time. 8. In addition to strength building during appointment times, the patient will be provided a home exercise progression tailored to their needs. The goal will be to further improve functional mobility, strength, endurance and in some cases balance. The need for an aftercare exercise program will be addressed to help the patient maintain benefits gained during their course of treatment. 9. Today's evaluation occupied a full 40 minutes altogether including time spent preparing to see the patient and then providing this documentation. Multiple conditions were evaluated. Other program topics and elements may include: 1. Instruction in body mechanics, ergonomics, and functional training. 2. Pain neuroscience. 3. Sleep and diet. 4. Non-pharmacologic pain management. 5. Manual therapy techniques including self-care. 6. Meditation techniques such as conscious napping. 05/29/2024 Cervicogenic headache (ICD-10 - G44.86) 06/05/2024 Cervicogenic headache (ICD-10 - G44.86) 06/09/2024 Cervicogenic headache (ICD-10 - G44.86) 05/22/2024 Cervicalgia (ICD-10 - M54.2) 1. I believe Rosaline is an excellent candidate for the type of treatment available here at [facility]. I believe she will benefit from core and deep core muscle strength building to support the spine. We will utilize our MedX equipment to isolate on critical muscle groups to achieve, first, muscle re-education, recruitment and activation, and then strength. Range of motion and strength will be measured objectively, and the patient will work towards resistance goals calculated for them by the therapists. 2. Rosaline has occipital headaches that probably have a cervicogenic component. she will benefit from a complete headache evaluation in conjunction with MedX-based cervical core muscle strength building, stretching and improved posture. Manual therapy techniques will be attempted. The patient can be taught self-care techniques that will allow for self-headache management in the future. 3. Rosaline also has a migraine headache syndrome in addition to occipital headaches. 4. Rosaline has prominent trigger points in the cervical and scapulothoracic regions. In addition to stretching, strength building and postural improvements, she will likely benefit from certain manual therapy techniques. This includes teaching the patient to perform their own manual therapies for future self-management of symptoms. 5. Rosaline is suffering from back spasms at this time. 6. Both physical therapists and occupational therapists will have input into developing the patient's plan of care. This will be an active biopsychosocial care approach. In some cases, we will utilize a cognitive-behavio ral coaching emphasis. 7. Rosaline has long-standing intermittent low back pain. She has high levels of symptoms at this time. I do recommend MRI scanning at this time. 8. In addition to strength building during appointment times, the patient will be provided a home exercise progression tailored to their needs. The goal will be to further improve functional mobility, strength, endurance and in some cases balance. The need for an aftercare exercise program will be addressed to help the patient maintain benefits gained during their course of treatment. 9. Today's evaluation occupied a full 40 minutes altogether including time spent preparing to see the patient and then providing this documentation. Multiple conditions were evaluated. Other program topics and elements may include: 1. Instruction in body mechanics, ergonomics, and functional training. 2. Pain neuroscience. 3. Sleep and diet. 4. Non-pharmacologic pain management. 5. Manual therapy techniques including self-care. 6. Meditation techniques such as conscious napping. 05/22/2024 Cervicogenic headache (ICD-10 - G44.86) 1. I believe Rosaline is an excellent candidate for the type of treatment available here at [facility]. I believe she will benefit from core and deep core muscle strength building to support the spine. We will utilize our MedX equipment to isolate on critical muscle groups to achieve, first, muscle re-education, recruitment and activation, and then strength. Range of motion and strength will be measured objectively, and the patient will work towards resistance goals calculated for them by the therapists. 2. Rosaline has occipital headaches that probably have a cervicogenic component. she will benefit from a complete headache evaluation in conjunction with MedX-based cervical core muscle strength building, stretching and improved posture. Manual therapy techniques will be attempted. The patient can be taught self-care techniques that will allow for self-headache management in the future. 3. Rosaline also has a migraine headache syndrome in addition to occipital headaches. 4. Rosaline has prominent trigger points in the cervical and scapulothoracic regions. In addition to stretching, strength building and postural improvements, she will likely benefit from certain manual therapy techniques. This includes teaching the patient to perform their own manual therapies for future self-management of symptoms. 5. Rosaline is suffering from back spasms at this time. 6. Both physical therapists and occupational therapists will have input into developing the patient's plan of care. This will be an active biopsychosocial care approach. In some cases, we will utilize a cognitive-behavio ral coaching emphasis. 7. Rosaline has long-standing intermittent low back pain. She has high levels of symptoms at this time. I do recommend MRI scanning at this time. 8. In addition to strength building during appointment times, the patient will be provided a home exercise progression tailored to their needs. The goal will be to further improve functional mobility, strength, endurance and in some cases balance. The need for an aftercare exercise program will be addressed to help the patient maintain benefits gained during their course of treatment. 9. Today's evaluation occupied a full 40 minutes altogether including time spent preparing to see the patient and then providing this documentation. Multiple conditions were evaluated. Other program topics and elements may include: 1. Instruction in body mechanics, ergonomics, and functional training. 2. Pain neuroscience. 3. Sleep and diet. 4. Non-pharmacologic pain management. 5. Manual therapy techniques including self-care. 6. Meditation techniques such as conscious napping. 05/22/2024 Migraine with aura, not intractable, without status migrainosus (ICD-10 - G43.109) 1. I believe Rosaline is an excellent candidate for the type of treatment available here at [facility]. I believe she will benefit from core and deep core muscle strength building to support the spine. We will utilize our MedX equipment to isolate on critical muscle groups to achieve, first, muscle re-education, recruitment and activation, and then strength. Range of motion and strength will be measured objectively, and the patient will work towards resistance goals calculated for them by the therapists. 2. Rosaline has occipital headaches that probably have a cervicogenic component. she will benefit from a complete headache evaluation in conjunction with MedX-based cervical core muscle strength building, stretching and improved posture. Manual therapy techniques will be attempted. The patient can be taught self-care techniques that will allow for self-headache management in the future. 3. Rosaline also has a migraine headache syndrome in addition to occipital headaches. 4. Rosaline has prominent trigger points in the cervical and scapulothoracic regions. In addition to stretching, strength building and postural improvements, she will likely benefit from certain manual therapy techniques. This includes teaching the patient to perform their own manual therapies for future self-management of symptoms. 5. Rosaline is suffering from back spasms at this time. 6. Both physical therapists and occupational therapists will have input into developing the patient's plan of care. This will be an active biopsychosocial care approach. In some cases, we will utilize a cognitive-behavio ral coaching emphasis. 7. Rosaline has long-standing intermittent low back pain. She has high levels of symptoms at this time. I do recommend MRI scanning at this time. 8. In addition to strength building during appointment times, the patient will be provided a home exercise progression tailored to their needs. The goal will be to further improve functional mobility, strength, endurance and in some cases balance. The need for an aftercare exercise program will be addressed to help the patient maintain benefits gained during their course of treatment. 9. Today's evaluation occupied a full 40 minutes altogether including time spent preparing to see the patient and then providing this documentation. Multiple conditions were evaluated. Other program topics and elements may include: 1. Instruction in body mechanics, ergonomics, and functional training. 2. Pain neuroscience. 3. Sleep and diet. 4. Non-pharmacologic pain management. 5. Manual therapy techniques including self-care. 6. Meditation techniques such as conscious napping. 05/22/2024 Muscle spasm of back (ICD-10 - M62.830) 1. I believe Rosaline is an excellent candidate for the type of treatment available here at [facility]. I believe she will benefit from core and deep core muscle strength building to support the spine. We will utilize our MedX equipment to isolate on critical muscle groups to achieve, first, muscle re-education, recruitment and activation, and then strength. Range of motion and strength will be measured objectively, and the patient will work towards resistance goals calculated for them by the therapists. 2. Rosaline has occipital headaches that probably have a cervicogenic component. she will benefit from a complete headache evaluation in conjunction with MedX-based cervical core muscle strength building, stretching and improved posture. Manual therapy techniques will be attempted. The patient can be taught self-care techniques that will allow for self-headache management in the future. 3. Rosaline also has a migraine headache syndrome in addition to occipital headaches. 4. Rosaline has prominent trigger points in the cervical and scapulothoracic regions. In addition to stretching, strength building and postural improvements, she will likely benefit from certain manual therapy techniques. This includes teaching the patient to perform their own manual therapies for future self-management of symptoms. 5. Rosaline is suffering from back spasms at this time. 6. Both physical therapists and occupational therapists will have input into developing the patient's plan of care. This will be an active biopsychosocial care approach. In some cases, we will utilize a cognitive-behavio ral coaching emphasis. 7. Rosaline has long-standing intermittent low back pain. She has high levels of symptoms at this time. I do recommend MRI scanning at this time. 8. In addition to strength building during appointment times, the patient will be provided a home exercise progression tailored to their needs. The goal will be to further improve functional mobility, strength, endurance and in some cases balance. The need for an aftercare exercise program will be addressed to help the patient maintain benefits gained during their course of treatment. 9. Today's evaluation occupied a full 40 minutes altogether including time spent preparing to see the patient and then providing this documentation. Multiple conditions were evaluated. Other program topics and elements may include: 1. Instruction in body mechanics, ergonomics, and functional training. 2. Pain neuroscience. 3. Sleep and diet. 4. Non-pharmacologic pain management. 5. Manual therapy techniques including self-care. 6. Meditation techniques such as conscious napping. 05/22/2024 Scoliosis, unspecified (ICD-10 - M41.9) 1. I believe Rosaline is an excellent candidate for the type of treatment available here at [facility]. I believe she will benefit from core and deep core muscle strength building to support the spine. We will utilize our MedX equipment to isolate on critical muscle groups to achieve, first, muscle re-education, recruitment and activation, and then strength. Range of motion and strength will be measured objectively, and the patient will work towards resistance goals calculated for them by the therapists. 2. Rosaline has occipital headaches that probably have a cervicogenic component. she will benefit from a complete headache evaluation in conjunction with MedX-based cervical core muscle strength building, stretching and improved posture. Manual therapy techniques will be attempted. The patient can be taught self-care techniques that will allow for self-headache management in the future. 3. Rosaline also has a migraine headache syndrome in addition to occipital headaches. 4. Rosaline has prominent trigger points in the cervical and scapulothoracic regions. In addition to stretching, strength building and postural improvements, she will likely benefit from certain manual therapy techniques. This includes teaching the patient to perform their own manual therapies for future self-management of symptoms. 5. Rosaline is suffering from back spasms at this time. 6. Both physical therapists and occupational therapists will have input into developing the patient's plan of care. This will be an active biopsychosocial care approach. In some cases, we will utilize a cognitive-behavio ral coaching emphasis. 7. Rosaline has long-standing intermittent low back pain. She has high levels of symptoms at this time. I do recommend MRI scanning at this time. 8. In addition to strength building during appointment times, the patient will be provided a home exercise progression tailored to their needs. The goal will be to further improve functional mobility, strength, endurance and in some cases balance. The need for an aftercare exercise program will be addressed to help the patient maintain benefits gained during their course of treatment. 9. Today's evaluation occupied a full 40 minutes altogether including time spent preparing to see the patient and then providing this documentation. Multiple conditions were evaluated. Other program topics and elements may include: 1. Instruction in body mechanics, ergonomics, and functional training. 2. Pain neuroscience. 3. Sleep and diet. 4. Non-pharmacologic pain management. 5. Manual therapy techniques including self-care. 6. Meditation techniques such as conscious napping. 05/22/2024 Other I, Mohini Partida, am serving as a scribe to document services personally performed by Ritesh Garcia MD, based upon my observations and the provider's statements to me. All documentation has been reviewed by the aforementioned doctor prior to being entered into the official medical record. I, Ritesh Garcia MD attest that the above named individual is acting in scribe capacity, has observed my performance of the services and has documented them in accordance with my direction. The documentation recorded by the scribe accurately reflects the service I personally performed and the decisions made by me. 1. I believe Rosaline is an excellent candidate for the type of treatment available here at [facility]. I believe she will benefit from core and deep core muscle strength building to support the spine. We will utilize our MedX equipment to isolate on critical muscle groups to achieve, first, muscle re-education, recruitment and activation, and then strength. Range of motion and strength will be measured objectively, and the patient will work towards resistance goals calculated for them by the therapists. 2. Rosaline has occipital headaches that probably have a cervicogenic component. she will benefit from a complete headache evaluation in conjunction with MedX-based cervical core muscle strength building, stretching and improved posture. Manual therapy techniques will be attempted. The patient can be taught self-care techniques that will allow for self-headache management in the future. 3. Rosaline also has a migraine headache syndrome in addition to occipital headaches. 4. Rosaline has prominent trigger points in the cervical and scapulothoracic regions. In addition to stretching, strength building and postural improvements, she will likely benefit from certain manual therapy techniques. This includes teaching the patient to perform their own manual therapies for future self-management of symptoms. 5. Rosaline is suffering from back spasms at this time. 6. Both physical therapists and occupational therapists will have input into developing the patient's plan of care. This will be an active biopsychosocial care approach. In some cases, we will utilize a cognitive-behavio ral coaching emphasis. 7. Rosaline has long-standing intermittent low back pain. She has high levels of symptoms at this time. I do recommend MRI scanning at this time. 8. In addition to strength building during appointment times, the patient will be provided a home exercise progression tailored to their needs. The goal will be to further improve functional mobility, strength, endurance and in some cases balance. The need for an aftercare exercise program will be addressed to help the patient maintain benefits gained during their course of treatment. 9. Today's evaluation occupied a full 40 minutes altogether including time spent preparing to see the patient and then providing this documentation. Multiple conditions were evaluated. Other program topics and elements may include: 1. Instruction in body mechanics, ergonomics, and functional training. 2. Pain neuroscience. 3. Sleep and diet. 4. Non-pharmacologic pain management. 5. Manual therapy techniques including self-care. 6. Meditation techniques such as conscious napping. Plan Of Treatment Pending Test Test Name Order Date MRI SPINE LUMBAR W/O CON 05/22/2024 Insurance Providers Payer Name Payer Address Payer Phone Subscriber Number Group Number Insured Name Patient Relationship to Insured Coverage Start Date Coverage End Date [facility] [address] [address] [place] [address] [id number] Rosaline Bridges Self - patient is the insured 5 Medical (General) History Medical History History ICD Code Migraines Surgical History Surgery Date(Month/Year) Cardiac Ablation 04/10/2021 Uterine Ablation 11/20/2019 Breast Reduction and Lift 09/22/2012 Jelm Teeth (three only) 06/21/2009 10/24/2004 (Placenta Previa) 11/30/2001 Lazy Eye Surgery 06/21/1981 Hospitalization History Reason Date(Month/Year) Surgical
--- OUTSIDE RECORDS SUMMARY | 2024-10-18 19:21 | XMS_ITS ---
Author Organization [facility] Address [address] [place] [address] [address] [place] [address] Care Team Providers Care International Broadcast Music Librarian Name Role Phone Renee Angeles Primary Care Provider Ritesh Dodd Unavailable [phone] Nia Sam Unavailable [phone] Encounters Encounter Location Date Provider Diagnosis [facility] [address] [place] [address] 07/17/2024 Nia Sam Plan Of Treatment No Information Progress Notes * Rosaline BRIDGES RDOB:[birth year] (44 yo F)Acc No.[id number]:07/17/2024 Daily Note Patient: Leslie ELDER Rosaline Marx Provider: Anton Sam DPT Resource:Kimberli Peoples :1980 A ge:44 Y S ex:Female Date:07/17/2024 Phone: Address:[address] [facility] Pcp:Renee Angeles Subjective: * Chief Complaints: Objective: Therapeutic Interventions: Assessment: Plan: * Treatment: * Billing Information: * Visit Code: * Procedure Codes: * Electronic signature of Emanuel Sam DPT on 10/18/2024 at 07:21 PM CDT Sign off status: Pending * Provider: Anton Sam DPT Date: 07/17/2024 Generated for Fabiano ventura/Juan/eTranmillieitting on: 0 10/18/2024 07:21 PM CDT
--- OUTSIDE RECORDS SUMMARY | 2024-10-18 19:21 | XMS_ITS ---
Author Organization [facility] Address [address] [place] [address] [address] [place] [address] Care Team Providers Care Card Dealer Name Role Phone Renee Angeles Primary Care Provider Ritesh Dodd Unavailable [phone] REASON FOR VISIT Cancel Appointment Request Encounters Encounter Location Date Provider Diagnosis [facility] [address] [place] [address] 07/10/2024 Ritesh Garcia Plan Of Treatment No Information Progress Notes * Rosaline BRIDGES RDOB:[birth year] (44 yo F)Acc No.[id number]:07/10/2024 Patient: Leslie ELDER Rosaline Marx :1980 A ge:44 Y S ex:Female Phone: Address:[address] , [place], [address] * true * Date: Generated for Printi ng/Faxing/eTransmitting on: 0 10/18/2024 07:21 PM CDT
--- OUTSIDE RECORDS SUMMARY | 2024-10-18 19:21 | XMS_ITS | Encounter Summary ---
Author Organization [facility] Address [address] [place] [address] Care Team Providers Care Slag Expander Name Role Phone Criss Pathak MD Primary Care Provider Anisa Lorenz PA-C Primary Care Provider [phone] No Ref-Primary, Physician Primary Care Provider Kane Louis MD Unavailable [phone] Anisa Lorenz PA-C Unavailable Renee Angeles GASKET INSPECTOR Primary Care Prov ider Anisa Lorenz PA-C Unavailable Katie Disla MD Unavailable Anisa Lorenz PA-C Unavailable Katie Disla MD Unavailable Reason for Visit * Reason Onset Date Comments Refill Request 12/06/2011 tramadol Encounter Details Date Type Department Care Team (Late st Contact Info) Description 12/06/[address] 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 Maikel Rutherford RN * Telephone Encounter - Maikel Cullen - 12/07/2011 9:30 AM CDTMessage from MyChart: Original authorizing provider: MD oRsaline Mirza would like a refill of the following medications: traMADol (ULTRAM) 50 MG tablet [Criss Pathak MD] Preferred pharmacy: [facility] off [address] Comment: Not sure if it's weather, hormonal, stress, or all three. Swelling and pain acting up significantlyand instantly. Ice has been working. I do have an appointment with a plastic surgeon in 3 weeks. documented in this encounter Plan of Treatment Not on file documented as of this encounter Visit Diagnoses Diagnosis Breast tenderness Mastodynia documented in this encounter Care Teams Slag Expander Relationship Specialty [place] [address] [place] [address] PCP - General Family Practice 08/01/10 09/18/13 Anisa Lorenz PA-C [address] [place] [address] PCP - General Physician Auditor Supervisor 09/19/13 12/01/17 No Ref-Primary, Physician PCP - General 12/02/17 08/07/18 Anisa Lorenz PA-C [address] [place] [id number] PCP - Assigned PCP 08/18/13 08/23/18 Renee Angeles, [facility] [address] [place] [address] PCP - General Nurse Practitioner - Adult Health 08/08/18 Kane Louis MD Ophthalmology 12/02/17 Anisa Lorenz PA-C [address] [place] [address] Assigned PCP 08/18/13 11/19/18 Katie Disla MD [address] [place] [address] Assigned PCP 11/20/18 11/18/19 Anisa Lorenz PA-C [address] [place] [address] Assigned PCP 11/19/19 07/20/20 Katie Disla MD [address] [facility] [place] [address] Assigned PCP 07/21/20 11/21/21 documented as of this encounter
--- OUTSIDE RECORDS SUMMARY | 2024-10-18 19:21 | XMS_ITS | Encounter Summary ---
Author Organization [facility] Address [address] [place] [address] Care Team Providers Care Registration Manager Name Role Phone Criss Pathak MD Primary Care Provider [phone] Anisa Lorenz PA-C Primary Care Provider [phone] No Ref-Primary, Physician Primary Care Provider Kane Louis MD Unavailable [phone] Anisa Lorenz PA-C Unavailable Renee Angeles NP Primary Care Prov ider nAisa Lorenz PA-C Unavailable Katie Disla MD Unavailable Anisa Lorenz PA-C Unavailable Katie Disla MD Unavailable Reason for Referral * Referral not Required - Closed Specialty Diagnoses / Procedures Referred By Contefrem t Referred To Contact Diagnoses Fibrocystic disease of breast, proliferative [place] [address] [place] [address] Phone: tel: fax: [facility] [address] [place] [address] Phone: tel: Referral ID Status Reason Start Date Expiration Date Visits Re quested Visits Authorized [id number] Closed 04/02/2011 09/29/2011 1 1 Comments Your provider has referred you to: [facility], Dr Joselito Barrow at [phone]. Please be aware that coverage of these services is subject to the terms and limitations of your health insurance plan. Call member services at your health plan with any benefit or coverage questions. Please bring the following to your appointment: >> Any x-rays, CTs or MRIs which have been performed. Contact the facility where they were done to arrange for sweet pickle maker prior to your scheduled appointment. Any new CT, MRI or other procedures ordered by your specialist must be performed at a [facility] or coordinated by your clinic's referral office. >> List of current medications >> This referral request >> Any documents/labs given to you for this referral Encounter Details Date Type Department Care Team (Latest Contact Info) Description 04/02/2011 [facility] [address] [id number] Rupa Castellano MD [address] [place] [address] Fibrocystic disease of breast, proliferative type; Mastodynia Social History Tobacco Use Types Packs/Day Years Used Date Smoking Tobacco: Former Smokeless Tobacco: Never Comments:quit 2006 Alcohol Use Standard Drinks/Week Comments Yes 0 (1 standard drink = 0.6 oz pur e alcohol) rarely Comments No Sex and Gender Information Value Date Recorded Sex Assigned at Not on file Legal Sex Female 4:17 AM DIRECTOR OF SERVICES Gender Identity Not on file Sexual Orientation Not on file documented as of this encounter Miscellaneous Notes * Telephone Encounter - Barbie Escalante - 04/02/2011 4:04 PM CDT [facility]. Dr Castellano had suggested this referral at her last visit. (Barbie in referrals) documented in this encounter Plan of Treatment Scheduled Referrals Name Type Priority Associated Diagnoses Orde r Schedule GENERAL SURG ADULT REFERRAL Referral Routine Fibrocystic disease of breast, proliferative type Mastodynia Ordered: 04/02/2011 documented as of this encounter Visit Diagnoses Diagnosis Fibrocystic disease of breast, proliferative type Diffuse cystic mastopathy Mastodynia documented in this encounter Care Teams Registration Manager Relationship Specialty [place] [address] [place] [address] PCP - General Family Practice 08/01/10 09/18/13 Anisa Lorenz PA-C [address] [place] [address] PCP - General Physician Instrumentation Chemist 09/19/13 12/01/17 No Ref-Primary, Physician PCP - General 12/02/17 08/07/18 Anisa Lorenz PA-C [address] [place] [address] PCP - Assigned PCP 08/18/13 08/23/18 Renee Angeles NP [facility] [address] [place] [address] PCP - General Nurse Practitioner - Adult Health 08/08/18 Kane Louis MD Ophthalmology 12/02/17 Anisa Lorenz PA-C [address] [place] [address] Assigned PCP 08/18/13 11/19/18 Katie Disla MD [address] [place] [address] Assigned PCP 11/20/18 11/18/19 Anisa Lorenz PA-C [address] [address] Assigned PCP 11/19/19 07/20/20 Katie Disla MD [address] [place] [address] Assigned PCP 07/21/20 11/21/21 documented as of this encounter
--- OUTSIDE RECORDS SUMMARY | 2024-10-18 19:21 | XMS_ITS | Encounter Summary ---
Author Organization [facility] Address [address] [place] [address] Care Team Providers Care Stocklayer Name Role Phone Criss Pathak MD Primary Care Provider Anisa Lorenz PA-C Primary Care Provider [phone] No Ref-Primary, Physician Primary Care Provider Kane Louis MD Unavailable [phone] Anisa Lorenz PA-C Unavailable Renee Angeles NP Primary Care Prov ider Anisa Lorenz PA-C Unavailable Katie Disla MD Unavailable Anisa Lorenz PA-C Unavailable [phone] Katie Disla MD Unavailable Encounter Details Date Type Department Care Team (Late st Contact Info) Description 02/28/2013 [facility] [address] [address] Jeancarlos Castellano Social History Tobacco Use Types Packs/Day Years Used Date Smoking Tobacco: Former Smokeless Tobacco: Never Comments:quit 2006 Alcohol Use Standard Drinks/Week Comments Yes 0 (1 standard drink = 0.6 oz pur e alcohol) rarely Comments No Sex and Gender Information Value Date Recorded Sex Assigned at Not on file 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 Sex 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 Gender Identity Not on file Sexual Orientation Not on file documented as of this encounter Plan of Treatment Not on file documented as of this encounter Visit Diagnoses Not on filedocumented in this encounter Care Teams Stocklayer Relationship Specialty [place] [address] [place] [address] PCP - General Family Practice 08/01/10 09/18/13 Anisa Lorenz PA-C [address] [place] [address] PCP - General Physician Qa Internship 09/19/13 12/01/17 No Ref-Primary, Physician PCP - General 12/02/17 08/07/18 Anisa Lorenz PA-C [address] [place] [address] PCP - Assigned PCP 08/18/13 08/23/18 Renee Angeles NP [facility] [address] [id number] PCP - General Nurse Practitioner - Adult Health 08/08/18 Kane Louis MD Ophthalmology 12/02/17 Anisa Lorenz PA-C [address] [place] [id number] Assigned PCP 08/18/13 11/19/18 Katie Disla MD [address] [facility] [place] [id number] Assigned PCP 11/20/18 11/18/19 Anisa Lorenz PA-C [address] [address] Assigned PCP 11/19/19 07/20/20 Katie Disla MD [address] [place], [place] [id number] Assigned PCP 07/21/20 11/21/21 documented as of this encounter
--- OUTSIDE RECORDS SUMMARY | 2024-10-18 19:21 | XMS_ITS | Clinical Summary ---
Author Organization [facility] Address [address] [place] [address] Care Team Providers Care Rn Cardiovascular Icu Name Role Phone Kane Louis MD Unavailable [phone] Renee Angeles SORORITY MOTHER Primary Care Prov ider Allergies Active Allergy Reactions Criticality Noted Date Comments Compazine 02/01/2009 Phenagran--anxiety Promethazine-Dm Anxiety Low 09/26/2012 Fluoxetine Hcl 02/01/2009 Patient can't sleep. Medications Multiple Vitamin (MULTI VITAMIN PO) Active SUMAtriptan (IMITREX) 100 MG tabletIndication s:Other migraine with status migrainosus, not intractable Take 1 tablet (100 mg) by mouth at onset of headache for migraine May repeat in 2 hours if needed: max 2/day; average number of headaches monthly 2 9 tablet 1 8 Active butalbital-aceta minophen-caffein e (FIORICET/ESGIC) 50-325-40 MG per tabletIndication s:Other migraine with status migrainosus, not intractable Take 1 tablet by mouth every 6 hours as needed 10 tablet 8 Active diazepam (VALIUM) 10 MG tablet Take 12 mg by mouth nightly as needed for anxiety Active amphetamine-dext roamphetamine (ADDERALL) 5 MG tablet Take 5 mg by mouth 2 times daily as needed Active Active Problems Problem Noted Date Diagnosed Date Migraine with aura and witho ut status migrainosus, not intractable 05/26/2017 Other chronic pain 04/29/2015 Benzodiazepine misuse 11/22/2013 Exposure to laser radiation 11/01/2013 Overview (04/21/2017): Patient is followed by [facility]LA[facility] BURGOS All refills should be approved by this provider, or covering partner. Medication(s): [place]. For laser tattoo removal Maximum quantity per month: 10 Clinic visit frequency required: Q 6 months Controlled substance agreement on file: No Last [facility] website verification: 04/21/17 [email or web address] Tinnitus 10/10/2013 Generalized Anxiety Disorder 01/16/2013 Fibrocystic disease of breast, proliferative typ e 02/04/2011 Melanocytic nevus 02/04/2011 Overview (03/21/2012): (Problem list name updated by automated process. Provider to review and confirm.) CARDIOVASCULAR SCREENING; LDL GOAL LESS THAN 160 04/20/2010 Migraine headache 08/19/2009 Overview (03/21/2012): (Problem list name updated by automated process. Provider to review and confirm.) Resolved Problems Problem Noted Date Diagnosed Date Resolved Date Left foot pain 09/10/2017 09/29/2018 Acute abdominal pain 01/28/2014 015 Immunizations Name Administration Dates Next Due TDAP Vaccine (Adacel) 07/20/2012 Family History Medical History Relation Comments Heart Disease Father Irregular Heart Thyroid Disease Maternal Grandmother Breast Cancer Other 1 great aunt Inflammatory Bowel Disease Other 2 negat hugo Alcohol/Drug Paternal Grandfather Alcohol Cerebrovascular Disease Paternal Grandfather Cataracts Paternal Grandmother Glaucoma No family hx of Macular Degeneration No family hx of Relation Status Comments Father Alive Maternal Grandfather Maternal Grandmother Alive Mother Alive Other 1 Other 2 Paternal Grandfather Paternal Grandmother Alive Social History Tobacco Use Types Packs/Day Years Used Date Smoking Tobacco: Former Smokeless Tobacco: Never Tobacco Cessation:Counseling Given: No Comments:quit 2006 Alcohol Use Standard Drinks/Week Comments Yes 0 (1 standard drink = 0.6 oz pur e alcohol) rarely PHQ-2 Answer Date Recorded PHQ-2 Score 0 06/29/2018 Adolescent Education Answer Date Record ed Getting School Help Needed Not on file 03/28 Comments No Sex and Gender Information Value Date Recorded Sex Assigned at Not on file 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 Gender Identity Not on file Sexual Orientation Not on file Last Filed Vital Signs Vital Sign Reading Time Taken Comments Blood Pressure 132/92 01/14/2021 4:40 AM CDT Pulse 71 01/14/2021 4:40 AM CDT Temperature 36.4 C (97.5 F) 01/14/2021 4:40 AM CDT Respiratory Rate 16 01/14/2021 4:40 AM CDT Oxygen Saturation 100% 01/14/2021 4:40 AM CDT Inhaled Oxygen Concentration - - Weight 63.5 kg (140 lb) 12/05/2020 5:39 PM CDT Height 160 cm (5' 3) 12/05/2020 5:39 PM CDT Body Mass Index 24.8 12/05/2020 5:39 PM CDT Plan of Treatment Not on file Insurance [facility] Advance Directives For more information, please contact: [phone] * Full Code (Latest Code Status on File) Date Activated Date Inactivated Comments 01/28/2014 10:34 AM 05/31/2019 6:59 AM * Full Code Date Activated Date Inactivated Comments 01/28/2014 3:35 AM 01/28/2014 10:34 AM Care Teams Rn Cardiovascular Icu Relationship Specialty Start Date End Date Renee Angeles NP [facility] [address] [place] [address] PCP - General Nurse Practitioner - Adult Health 08/08/18 Kane Louis MD Ophthalmology 12/02/17
--- OUTSIDE RECORDS SUMMARY | 2024-10-18 19:21 | XMS_ITS | Clinical Summary ---
Author Organization [employer] Address [address] [place] [address] Care Team Providers Care Community Health Educator Name Role Phone Pcp, No Primary Care Provider Unavailabl e Allergies Active Allergy Reactions Criticality Noted Date Comments Fluoxetine Intolerance-Can't Take 04/11/2021 Serotonin syndrome Prochlorperazine Hives,Other - Descri be In Comment Field 09/29/2005 anxiety, paranoia Phenagran--anxiety Phenagran--anxiety Promethazine Hives,Other - Descri be In Comment Field 09/29/2005 anxiety, paranoia Medications multivitamin (MVI) tablet Take 1 Tablet by mouth once daily. 0 2 Active melatonin 5 mg capsule Take 1 Capsule (5 mg) by mouth. 0 2 Active medication order composer Testosterone Cream Daily Active diazePAM (VALIUM) 10 mg tablet Take 20 mg by mouth once daily. Active medication order composer Take 0.6 mg by mouth once daily. GLP-2/B12 Active metoprolol tartrate (LOPRESSOR) 25 mg tabletIndicatio ns:Sinus tachycardia,Atr ial tachycardia (HC) Take 25 mg (1 tablet) in the morning and 12.5 mg (0.5 tablet) in the evening. 135 Tablet 3 4 Active Active Problems Problem Noted Date Diagnosed Date PAF (paroxysmal atrial fibrillation) 07/09/2021 Anxiety 03/07/2021 Immunizations Immunization Administration Dates Next Due COVID-19 vaccine (Moderna 100mcg/0.5mL) PF, MDV 10/23/2020,08/19/2020 MMR 02/05/1992 Tdap 07/20/2012,03/21/2008 Family History Medical History Relation Name Comments Cancer Maternal Aunt Cancer-breast Maternal Aunt Relation Name Status Comments Maternal Aunt Social History Tobacco Use Types Packs/Day Years Used Date Smoking Tobacco: Former Cigarettes Q uit: 2006 Smokeless Tobacco: Never Tobacco Cessation:Counseling Given: Not Answered Alcohol Use Standard Drinks/Week Comments Not Currently 0 (1 standard drink = 0.6 oz pur e alcohol) PHQ-2 Answer Date Recorded PHQ-2 TOTAL SCORE 0 10/16/2022 Social Connections Answer Date Recorded Frequency of Communication with Friends and Fami ly 0 10/28/2022 Financial Resource Strain Answer Date R ecorded Difficulty of Paying Living Expenses 3 10/28/2022 Difficulty of Paying Living Expenses Not on file 10/28/2022 Food Insecurity Answer Date Recorded Worried About Running Out of Food in the Last Ye ar 1 10/28/2022 Transportation Needs Answer Date Record ed Lack of Transportation (Medical) 1 10/28/2022 Housing Stability Answer Date Recorded Unable to Pay for Housing in the Last Year 1 10/28/2022 Comments No Sex and Gender Information Value Date Recorded Sex Assigned at Not on file Legal Sex Female 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 Gender Identity Not on file Sexual Orientation Not on file Obstetrics History Para Term AB IAB SAB Ectopic Multiple Livin g Live Births 7 6 4 2 1 1 3 3 Date Outcome GA Total Labor Labor/2nd/3rd Weight Sex Type Anes PTL Ivana A1 A5 Name Clin Term M Vag-S pont Living Term M Living Term M Living Term IAB Last Filed Vital Signs Vital Sign Reading Time Taken Comments Blood Pressure 128/80 03/20/2024 10:50 AM CDT Pulse 100 03/20/2024 10:50 AM CDT Temperature 36.7 C (98 F) 03/31/2023 9:16 AM CDT Respiratory Rate 14 03/31/2023 9:16 AM CDT Oxygen Saturation 97% 03/20/2024 10:50 AM CDT Inhaled Oxygen Concentration - - Weight 64.4 kg (142 lb) 03/20/2024 10:50 AM CDT Height 160 cm (5' 3) 03/20/2024 10:50 AM CDT Body Mass Index 25.15 03/20/2024 10:50 AM CDT Plan of Treatment Health Maintenance Due Date Last Done Comments Pneumococcal series for age 6-49 (1 of 2 - PCV) 1998 Pap test for age 21-65 02/18/2000 Tetanus booster 07/20/2022 07/20/2012, 03/21/2008 Depression screening for age 12+ 10/18/2023 10/18/19 23, 10/16/2022 Colonoscopy through age 75 02/18/2024 Mammogram for age 45-75 02/18/2024 03/03/2022 COVID-19 vaccine series ( season) 2024 10/23/2020, 08/19/2020 Influenza Vaccine (Season Ended) 2025 BMI (ht and wt on same day) for age 18+ 03/20/2025 03/20/2024, 08/23/2023, 10/16/2022, Additional history exists Lipids for age 45-75 10/17/2027 10/16/2022 Tdap Completed 07/20/2012, 03/21/2008 HIV for age 15-65 Completed 10/16/2022 Hepatitis C screening for ag e 18-79 Completed 10/16/2022 Procedures Procedure Name Priority Date/Time Associated Diagnosis Comments LC HIV-1/O/2, 4TH GENERATION Routine 10/16/2022 3:01 PM CDT Screening for HIV (human immunodeficiency virus) LC HCV ANTIBODY RFX TO QUANT PCR Routine 10/16/2022 3:01 PM CDT Need for hepatitis C screening test LC LIPID PANEL Routine 10/16/2022 3:01 PM CDT Annual physical exam XR MAMMO YULISSA BILAT SCREEN Routine 03/03/2022 1:36 PM CDT Visit for screening mammogram from Last 3 Months or Most Recently Relevant to Health Maintenance Results * (ABNORMAL) LC LIPID PANEL (10/16/2022 3:01 PM CDT) Cholesterol, Total 208(H) 100 - 199 mg/dL 10/19/2022 2:[address] [facility] ([facility]) Triglycerides 110 0 - 149 mg/dL 10/19/2022 2:[address] [facility] ([facility]) HDL Cholesterol 58 >39 mg/dL 2:[address] [facility] ([facility]) VLDL Cholesterol Sami 20 5 - 40 mg/dL 10/19/2022 2:[address] [facility] ([facility]) LDL Chol Calc (NIH) 130(H) 0 - 99 mg/dL 10/19/2022 2:[address] [facility] ([facility]) Blood BLOOD SPECIMEN / Unknown Venipuncture / Unknown 10/16/2022 3:01 PM CDT 10/16/2022 3:01 PM CDT [facility] ([facility]ET) - 10/19/2022 2:08 PM CDT Performed at: [address] [place] [address] [place], [place] [id number] Au Pair: José Luis Saleh MD, Phone: [phone] us Juan Cee MD SEND OUTS Final R esult [facility] ([facility]) [facility] [place] [address], * LC HCV ANTIBODY RFX TO QUANT PCR (10/16/2022 3:01 PM CDT) Pathologist [facility] HCV Ab Non Reactive Non Reactive 10/20/2022 10:[address] [facility] ([facility]) Blood BLOOD SPECIMEN / Unknown Venipuncture / Unknown 10/16/2022 3:01 PM CDT 10/16/2022 3:01 PM CDT [facility] ([facility]) - 10/20/2022 10:06 PM CDT Performed at: [address] [id number] Au Pair: José Luis Saleh MD, Phone: [phone] Juan Cee MD LABORATORY Final R esult Performing Organization Address City/[facility]/ZIP Co de Phone Number [facility] ([facility]) [address] [place] [address], * LC HIV-1/O/2, 4TH GENERATION (10/16/2022 3:01 PM CDT) HIV Scr 4th Gen Non Reactive Non Reactive 10/20/2022 10:06 PM CDT [facility] ([facility]) Comment: HIV Negative HIV-1/HIV-2 antibodies and HIV-1 p24 antigen were NOT detected. There is no laboratory evidence of HIV infection. Blood BLOOD SPECIMEN / Unknown Venipuncture / Unknown 10/16/2022 3:01 PM CDT 10/16/2022 3:01 PM CDT Narrative [facility] ([facility]) - 10/20/2022 10:06 PM CDT Performed at: [address] [place] [id number] Au Pair: José Luis Saleh MD, Phone: [phone] Juan Cee MD LABORATORY Final R esult Performing Organization Address [facility]/ZIP Co de Phone Number [facility] ([facility]) [address] [place] [address], [place] * XR MAMMO YULISSA BILAT SCREEN (03/03/2022 1:36 PM CDT) Anatomical Region Laterality Modality BREASTS, Breast Left, Breast Right Bilateral Mammography Impressions 03/04/2022 3:32 PM CDT There is no radiographic evidence for malignancy. Recommend annual mammograms. MAMMOGRAM ASSESSMENT: ACR 2 Benign PATIENTS: You will also receive a letter with your examination results in an easy to read format. If you have questions about your results, please contact your referring provider. Narrative 03/04/2022 3:32 PM CDT For Patients: As a result of the Century Cures Act, medical imaging exams and procedure reports are released immediately into your electronic medical record. You may view this report before your referring provider. If you have questions, please contact your health care provider. XR MAMMO YULISSA BILAT SCREEN [[id number]] CLINICAL HISTORY: This is an asymptomatic 42 y.o. patient. INDICATION FOR EXAM: Mammogram Screening. TECHNIQUE: CC & MLO views were obtained. This study was evaluated with the assistance of Computer-Aided Detection. Breast Tomosynthesis was used in interpretation. COMPARISON FILMS: Yes 01/25/15 [facility] 11/13/09 [facility] FINDINGS: The breasts are heterogeneously dense, which may obscure small masses. No suspicious masses or microcalcifications. Post surgical changes within both breasts related to prior reduction mammoplasties. Syl Frank NP MAMMO Final Result from Last 3 Months or Most Recently Relevant to Health Maintenance Insurance Advance Directives * Full Code (Latest Code Status on File) Date Activated Date Inactivated Comments 04/11/2021 10:14 AM 04/12/2021 3:28 PM Question Answer Comments Code Status Discussion: Other (specify in commen ts): Care Teams Community Health Educator Relationship Specialty Start Date End Date Pcp, No . PCP - General 07/12/24
--- OUTSIDE RECORDS SUMMARY | 2024-10-18 19:21 | XMS_ITS | Encounter Summary ---
Author Organization [facility] Address [address] [place] [address] Care Team Providers Care Salt Machine Operator Name Role Phone Criss Pathak MD Primary Care Provider [phone] Anisa Lorenz PA-C Primary Care Provider [phone] No Ref-Primary, Physician Primary Care Provider Kane Louis MD Unavailable [phone] Anisa Lorenz PA-C Unavailable Renee Angeles BIBLICAL LANGUAGES PROFESSOR Primary Care Prov ider Anisa Lorenz PA-C Unavailable Katie Disla MD Unavailable Anisa Lorenz PA-C Unavailable Katie Disla MD Unavailable Reason for Visit * Reason Onset Date Comments Refill Request 08/22/2012 zolpidem 10 mg Encounter Details Date Type Department Care Team (Late st Contact Info) Description 08/22/[address] 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 Gender Identity Not on file Sexual Orientation Not on file documented as of this encounter Miscellaneous Notes * Telephone Encounter - Maikel Cullen - 08/22/2012 11:34 AM CSTMessage from MyChart: Original authorizing provider: Bk Medrano MD, MD Rosaline Bridges would like a refill of the following medications: zolpidem (AMBIEN) 10 MG tablet [Bk Medrano MD, MD] Preferred pharmacy: [place], [place] - [id number] [place] [address] Comment: Medication renewals requested in this message routed to other providers: zolpidem (AMBIEN) 5 MG tablet [Criss Pathak MD, MD] EATIONAL VEHICLE RESORT MANAGER documented in this encounter Plan of Treatment Not on file documented as of this encounter Visit Diagnoses Diagnosis Insomnia Insomnia, unspecified documented in this encounter Care Teams Salt Machine Operator Relationship Specialty [place] [address] [place] [address] PCP - General Family Practice 08/01/10 09/18/13 Anisa Lorenz PA-C [address] [place] [address] PCP - General Physician Cook Morning 09/19/13 12/01/17 No Ref-Primary, Physician PCP - General 12/02/17 08/07/18 Anisa Lorenz PA-C [address] [place] [address] PCP - Assigned PCP 08/18/13 08/23/18 Renee Angeles NP [facility] [address] [place] [address] PCP - General Nurse Practitioner - Adult Health 08/08/18 Kane Louis MD MD Ophthalmology 12/02/17 Anisa Lorenz PA-C [address] [place] [address] Assigned PCP 08/18/13 11/19/18 Katie Disla MD [address] [place] [address] Assigned PCP 11/20/18 11/18/19 Anisa Lorenz PA-C [address] [place] [address] Assigned PCP 11/19/19 07/20/20 Katie Disla MD [address] [place] [address] Assigned PCP 07/21/20 11/21/21 documented as of this encounter
--- OUTSIDE RECORDS SUMMARY | 2024-10-18 19:21 | XMS_ITS | Encounter Summary ---
Author Organization [facility] Address [address] [place] [address] Care Team Providers Care Breakfast Server Name Role Phone Criss Pathak MD Primary Care Provider [phone] Anisa Lorenz PA-C Primary Care Provider [phone] No Ref-Primary, Physician Primary Care Provider Kane Louis MD Unavailable [phone] Anisa Lorenz PA-C Unavailable Renee Angeles ALLIANCES CONSULTANT Primary Care Prov ider Anisa Lorenz PA-C Unavailable Katie Disla MD Unavailable Anisa Lorenz PA-C Unavailable Katie Disla MD Unavailable Reason for Visit * Reason Onset Date Comments Refill Request 02/16/2012 kenalog and tram adol Encounter Details Date Type Department Care Team (Late st Contact Info) Description 02/16/2012 MyC Refill [facility] [address] [place] [phone] [place] [address] [place], [place] [phone] Refill Request (kenalog and tramadol) Social History Tobacco Use Types Packs/Day Years Used Date Smoking Tobacco: Former Smokeless Tobacco: Never Comments:quit 2006 Alcohol Use Standard Drinks/Week Comments Yes 0 (1 standard drink = 0.6 oz pur e alcohol) rarely Comments No Sex and Gender Information Value Date Recorded Sex Assigned at Not on file 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 Denisse Morrow R.N. * Telephone Encounter - Denisse Morrow - 2012 8:45 [facility] Original authorizing provider: MD Rosaline Mirza would like a refill of the following medications: triamcinolone (KENALOG) 0.5 % cream [Criss Pathak MD] traMADol (ULTRAM) 50 MG tablet [Criss Pathak MD] Preferred pharmacy: [facility] Comment: documented in this encounter Plan of Treatment Not on file documented as of this encounter Visit Diagnoses Diagnosis Dermatitis Contact dermatitis and other eczema, due to unspecified cause Breast tenderness Mastodynia documented in this encounter Care Teams Breakfast Server Relationship Specialty [place] [address] [place] [address] PCP - General Family Practice 08/01/10 09/18/13 Anisa Lorenz PA-C [address] [place] [address] PCP - General Physician Automotive Artist 09/19/13 12/01/17 No Ref-Primary, Physician PCP - General 12/02/17 08/07/18 Anisa Lorenz PA-C [address] [place] [address] PCP - Assigned PCP 08/18/13 08/23/18 Renee Angeles, [facility] [address] [place] [address] PCP - General Nurse Practitioner - Adult Health 08/08/18 Kane Louis MD MD Ophthalmology 12/02/17 Anisa Lorenz PA-C [address] [place] [address] Assigned PCP 08/18/13 11/19/18 Katie Disla MD [address] [place] [address] Assigned PCP 11/20/18 11/18/19 Anisa Lorenz PA-C [address] [place] [address] Assigned PCP 11/19/19 07/20/20 Katie Disla MD [address] [place] [address] Assigned PCP 07/21/20 11/21/21 documented as of this encounter
--- OUTSIDE RECORDS SUMMARY | 2024-10-18 19:21 | XMS_ITS ---
Author Organization [facility] Address [address] [place] [address] [address] [place] [address] Care Team Providers Care Machine Icer Name Role Phone Renee Angeles Primary Care Provider Ritesh Dodd Unavailable [phone] Nia Sam Unavailable [phone] Encounters Encounter Location Date Provider Diagnosis [facility] [address] [place] [address] 07/10/2024 Nia Sam Low back pain, unspecified M54.50 ; Cervicalgia M54.2 ; Pain in thoracic spine M54.6 and Cervicogenic headache G44.86 Assessments Encounter Date Diagnosis (ICD Code) Assessment Notes Treatment Notes Treatment Clinical Notes Section Notes 07/10/2024 Low back pain, unspecified (ICD-10 - M54.50) 07/10/2024 Cervicalgia (ICD-10 - M54.2) 07/10/2024 Pain in thoracic spine (ICD-10 - M54.6) 07/10/2024 Cervicogenic headache (ICD-10 - G44.86) Plan Of Treatment No Information Progress Notes * Rosaline BRIDGES RDOB:[birth year] (44 yo F)Acc No.[id number]:07/10/2024 Daily Note Patient: Leslie ELDER Rosaline Marx Provider: Anton Sam DPT Resource:Kimberli Peoples :1980 A ge:44 Y S ex:Female Date:07/10/2024 Phone: Address:[address] [place], [place]-[phone] Pcp:Renee Angeles Subjective: * Chief Complaints: * HPI: * Therapy Visit Status: Session Data Radha hernandez's Session Date 1 08/10/2023 T herapy Episode Status A ctive T herapy Sessions Completed (#) 3 P T Goal Review Date 1 07/30/2023 O T Goal Review Date 1 08/10/2023 Objective: * Physical Examination: C ervical Extension Positioning & Goals: Positioning S eat Height 2 52 T DC 5 1 C B 1 .4 a t: 1 8 deg Goals L ow Goal Female (Max 192) 1 92 H igh Goal Female (Max 222) 2 22 C ervical Extension Exercise Performance: Exercise T orque (in-lbs) 9 0 E xtension ROM (0) 6 F lexion ROM (126) 9 6 R epetitions 4 0 R PE (0-10) 3 .5 L ast Rep Status M et Repetition Goal E xercise Plan 2 x week L umbar Extension Positioning & Goals: Positioning T DC 2 1 a t N eed to Recounterbalance F emur 4 S eat Pad 1 inch pad Goals L ow Goal Female (60% BW) 8 4 H igh Goal Female (80%BW, Max 150) 1 12 L umbar Extension Exercise Performance: Exercise T orque (ft-lbs) 4 8 E xtension ROM (0) 0 F lexion ROM (72) 6 3 R epetitions 3 0 R ating of Perceived Exertion (0-10) 4 L ast Rep Status M et Exertion Goal E xercise Plan 2 x week C ervical Rotation Positioning & Goals: Positioning S eat Height 1 B ack Pad 3 inch H ead Pad L ow Goals L ow Goal Female (Max 60) 6 0 H igh Goal Female (Max 80) 8 0 Therapeutic Interventions: * Therapeutic Interventions: 1 . * Home Exercise List: Stretches & Release Neck Stretching HEP : Upper Trapezius, Levator Scapulae, Tennis Ball Release Low Back and Hip Stretching HEP : Hamstring (supine with ankle pump), Piriformis (supine), Piriformis (modified supine), Hip Flexor (standing), SI Self Facilitation, Piriformis (seated), Tennis Ball Release Shoulder Stretching HEP : Median Nerve Premier, Radial Nerve Premier, Ulnar Nerve Premier- Pt reported that she didn't feel a stretch with ulnar nerve glide (focus on median and radial) 2 . M ovement Therapy Summary Movement Therapy Details : Instructed the Pt on the following nerve glides d/t Pt reporting that she experiences n/t in her BUEs:Median Nerve Premier, Radial Nerve Premier, Ulnar Nerve Premier - Pt reported that she didn't feel a stretch with ulnar nerve glide (focus on median and radial). Billing : [id number] (Therapeutic Exercise) Direct 1:1 Time= 10 minutes Assessment: * Therapy Assessment and Plan: 1. * Therapy Session Plan Plan Details : *Patient Valued Goals/Activities: Pt reports that her main goal is to return to her normal and be able to exercise and go to the gym again, strengthen, decrease HAs, sit and stand longer*MD/BRENT Follow Up Plan: F/U after imaging,*Incoming Referral Tracking - NO.Would benefit from limited providers.-MedX: All machines: extension 2x/wk, rotations 1x/wk-Review SI self facilitation techniques prn- review self releases-intro activation exerises-graded activity/exercise education- Functional training/Lift conditioningTake breaks as needed - Pt has tachycardia and needs to take time to lower heart rate * Assessment: 1. L ow back pain, unspecified - M54.50 (Primary) 2 . C ervicalgia - M54.2? 3. P ain in thoracic spine - M54.6 4 . C ervicogenic headache - G44.86 Plan: * Treatment: * Billing Information: * Visit Code: * Procedure Codes: * Electronic signature of Emanuel Sam DPT on 10/18/2024 at 07:21 PM CDT Sign off status: Pending * Provider: Anton Sam DPT Date: 0 07/10/2024 Generated for Fabiano ventura/Juan/Jing on: 0 10/18/2024 07:21 PM CDT History and Physical Notes * HPI (History of Present Illness) Category Sub-Category Detail Notes Category Not es *Therapy Visit Status Session Data Today's Se ssion Date: 06/09/2024 Therapy Episode Status: Active Therapy Sessions Completed (#): 3 PT Goal Review Date: 05/29/2024 OT Goal Review Date: 06/09/2024 Physical Examination Category Sub-Category Detail Notes Section Note s Lumbar Extension Exercise Performance Exercise Torque (ft-lbs): 48 Extension ROM (0): 0 Flexion ROM (72): 63 Repetitions: 30 Rating of Perceived Exertion (0-10): 4 Last Rep Status: Met Exertion Goal Exercise Plan: 2 x week Lumbar Extension Positioning & Goals Positioning TDC: 21 at: Need to Recounterbal ance Femur: 4 Seat Pad: 1 inch pad Goals Low Goal Female (60% BW): 84 High Goal Female (80%BW, Max 150): 112 Cervical Extension Positioning & Goals Positioning Seat He ight: 252 TDC: 51 CB: 1.4 at:: 18 deg Goals Low Goal Female (Max 192): 192 High Goal Female (Max 222): 222 Cervical Extension Exercise Performance Exercise Torque (in-lbs): 90 Extension ROM (0): 6 Flexion ROM (126): 96 Repetitions: 40 RPE (0-10): 3.5 Last Rep Status: Met Repetition Goal Exercise Plan: 2 x week Cervical Rotation Positioning & Goals Positioning Seat Hei ght: 1 Back Pad: 3 inch Head Pad: Low Goals Low Goal Female (Max 60): 60 High Goal Female (Max 80): 80
--- OUTSIDE RECORDS SUMMARY | 2024-10-18 19:21 | XMS_ITS | Encounter Summary ---
Author Organization [facility] Address [address] [place] [address] Care Team Providers Care Engineering Coordinator Name Role Phone Criss Pathak MD Primary Care Provider Anisa Lorenz PA-C Primary Care Provider [phone] No Ref-Primary, Physician Primary Care Provider Kane Louis MD Unavailable [phone] Anisa Lorenz PA-C Unavailable Renee Angeles MORTAR MAKER Primary Care Prov ider Anisa Lorenz PA-C Unavailable Katie Disla MD Unavailable Anisa Lorenz PA-C Unavailable Katie Disla MD Unavailable Reason for Visit * Reason Onset Date Comments Refill Request 04/29/2011 Pt is out of med s Encounter Details Date Type Department Care Team (Late st Contact Info) Description 04/29/2011 Refill [facility] [address] [place] [phone] [place] [address] [place] [address] Refill Request (Pt is out of meds) Social History Tobacco Use Types Packs/Day Years Used Date Smoking Tobacco: Former Smokeless Tobacco: Never Comments:quit 2006 Alcohol Use Standard Drinks/Week Comments Yes 0 (1 standard drink = 0.6 oz pur e alcohol) rarely Comments No Sex and Gender Information Value Date Recorded Sex Assigned at Not on file 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 AA-there is also a [employer] message regarding a letter for school. Please review and advise. EVON Godinez UCT ANALYST * Telephone Encounter - Criss Pathak MD - 04/29/2011 3:29 PM CST I wonder how often is she using the ultram and for how many days? Criss Pathak MD. UCT ANALYST * Telephone Encounter - Halima Whiting - 04/29/2011 2:50 PM CST Call to patient to clarify which med is needed and which pharmacy Medication requested: ultram Date of last office visit related to request: 04/17/11 Date last filled: 03/31/11 #30 Labs pertaining to med: none Unable to fill PSO Dalila Whiting RN Patient also states she has started trial medication from Dr. Joselito Barrow at [facility] last week Dalila Whiting RN UCT ANALYST * Telephone Encounter - Jo Ann Leonard - 04/29/2011 12:38 PM CST Pt is out of her meds and cannot wait 2-3 days for them. Please refill and call pt back at [phone]. Thanks UCT ANALYST documented in this encounter Plan of Treatment Not on file documented as of this encounter Visit Diagnoses Diagnosis Breast tenderness- Primary Mastodynia documented in this encounter Care Teams Engineering Coordinator Relationship Specialty [place] [address] [place] [address] PCP - General Family Practice 08/01/10 09/18/13 Anisa Lorenz PA-C [address] [place] [address] PCP - General Physician Engine Service Repairer 09/19/13 12/01/17 No Ref-Primary, Physician PCP - General 12/02/17 08/07/18 Anisa Lorenz PA-C [address] [place] [address] PCP - Assigned PCP 08/18/13 08/23/18 Renee Angeles NP [facility] [address] [place] [address] PCP - General Nurse Practitioner - Adult Health 08/08/18 Knae Louis MD MD Ophthalmology 12/02/17 Anisa Lorenz PA-C [address] [place] [address] Assigned PCP 08/18/13 11/19/18 Katie Disla MD [address] [facility] [place] [address] Assigned PCP 11/20/18 11/18/19 Anisa Lorenz PA-C [address] [address] Assigned PCP 11/19/19 07/20/20 Katie Disla MD [address] [place], [place] [id number] Assigned PCP 07/21/20 11/21/21 documented as of this encounter
--- OUTSIDE RECORDS SUMMARY | 2024-10-18 19:21 | XMS_ITS | Encounter Summary ---
Author Organization [facility] Address [address] [place] [address] Care Team Providers Care Principal Secretary Name Role Phone Criss Pathak MD Primary Care Provider [phone] Anisa Lorenz PA-C Primary Care Provider [phone] No Ref-Primary, Physician Primary Care Provider Kane Louis MD Unavailable [phone] Anisa Lorenz PA-C Unavailable Renee Angeles MEDICATION ADMINISTRATION PROFESSIONAL Primary Care Prov ider Anisa Lorenz PA-C Unavailable Katie Disla MD Unavailable Anisa Lorenz PA-C Unavailable Katie Disla MD Unavailable Reason for Visit * Reason Onset Date Comments Refill Request 11/12/2011 tramadol Encounter Details Date Type Department Care Team (Late st Contact Info) Description 11/12/2011 MyC Refill [facility] [id number] [place] [phone] [place] [address] [place] [address] Refill Request (tramadol) Social History Tobacco Use Types Packs/Day Years Used Date Smoking Tobacco: Former Smokeless Tobacco: Never Comments:quit 2006 Alcohol Use Standard Drinks/Week Comments Yes 0 (1 standard drink = 0.6 oz pur e alcohol) rarely Comments No Sex and Gender Information Value Date Recorded Sex Assigned at Not on file 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 Maikel Rutherford RN * Telephone Encounter - Maikel Cullen - 11/12/2011 2:10 PM CDT[facility] Original authorizing provider: MD Rosaline Mirza would like a refill of the following medications: traMADol (ULTRAM) 50 MG tablet [Criss Pathak MD] Preferred pharmacy: [facility] Comment: Significant pain and hardened mass on upper right side; swelling declined, lump and pain are still present, in spite of hoping it would pass altogether. I have called in on the same day before and was told to use my chart from now on for refill needs. But the sooner this can possibly be given attention and filled would be greatly appreciated. Thanks so much. documented in this encounter Plan of Treatment Not on file documented as of this encounter Visit Diagnoses Diagnosis Breast tenderness Mastodynia documented in this encounter Care Teams Principal Secretary Relationship Specialty [place] [address] [place] [address] PCP - General Family Practice 08/01/10 09/18/13 Anisa Lorenz PA-C [address] [place] [address] PCP - General Physician Director Food And Beverage 4/1/14 6/13/18 No Ref-Primary, Physician PCP - General 12/02/17 08/07/18 Anisa Lorenz PA-C [address] [place] [address] PCP - Assigned PCP 08/18/13 08/23/18 Renee Angeles NP [facility] [address] [place] [address] PCP - General Nurse Practitioner - Adult Health 08/08/18 Kane Louis MD MD Ophthalmology 12/02/17 Anisa Lorenz PA-C [address] [place] [address] Assigned PCP 08/18/13 11/19/18 Katie Disla MD [address] [place] [address] Assigned PCP 11/20/18 11/18/19 Anisa Lorenz PA-C [address] [place] [address] Assigned PCP 11/19/19 07/20/20 Katie Disla MD [address] [place] [address] Assigned PCP 07/21/20 11/21/21 documented as of this encounter
--- OUTSIDE RECORDS SUMMARY | 2024-10-18 19:21 | XMS_ITS | Encounter Summary ---
Author Organization [facility] Address [address] [place] [address] Care Team Providers Care Leaded Glass Installer Name Role Phone Anisa Lorenz PA-C Primary Care Provider [phone] No Ref-Primary, Physician Primary Care Provider Kane Louis MD Unavailable [phone] Anisa Lorenz PA-C Unavailable Renee Angeles ELECTRONIC ASSEMBLER GROUP LEADER Primary Care Prov ider Anisa Lorenz PA-C Unavailable Katie Disla MD Unavailable Anisa Lorenz PA-C Unavailable Katie Disla MD Unavailable Reason for Visit * Reason Onset Date Comments MyChart Communication 05/12/2017 butalbital -acetaminophen-caffeine (FIORICET/ESGIC) 50-325-40 MG per tablet Encounter Details Date Type Department Care Team (Late st Contact Info) Description 05/12/2017 MyC Medical Advice [address] [address] Anisa Lorenz PA-C [address] [place], [place] [address] MyChart Communication (butalbital-acetamin.. . 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 Gender Identity Not on file Sexual Orientation Not on file documented as of this encounter Plan of Treatment Not on file documented as of this encounter Visit Diagnoses Diagnosis Other migraine with status migrainosus, not intractable documented in this encounter Additional Health Concerns Assessment Noted Time PHQ-9 Depression Total Score: 0 03/12/20 17 11:20 AM CDT documented as of this encounter Care Teams Leaded Glass Installer Relationship Specialty Start Date End Date Anisa Lorenz PA-C PCP - General Physician Salmon Gillnet Vessel Operator 09/19/13 12/01/17 No Ref-Primary, Physician PCP - General 12/02/17 08/07/18 Anisa Lorenz PA-C [address] [place] [id number] PCP - Assigned PCP 08/18/13 08/23/18 Renee Angeles NP [facility] [address] [place] [id number] PCP - General Nurse Practitioner - Adult Health 08/08/18 Kane Louis MD Ophthalmology 12/02/17 Anisa Lorenz PA-C [address] [place] [address] Assigned PCP 08/18/13 11/19/18 Katie Disla MD [address] [place] [address] Assigned PCP 11/20/18 11/18/19 Anisa Lorenz PA-C [address] [address] Assigned PCP 11/19/19 07/20/20 Katie Disla MD [address] [place] [address] Assigned PCP 07/21/20 11/21/21 documented as of this encounter
[2024-10-18 19:27] VITALS: BP 144/91; PULSE 106; RESP 16; TEMP 37.4; O2SAT 99; BMI 23.9
[2024-10-18 19:45] LABS: Appearance Urine Clear (Clear); Bilirubin Urine Negative (Negative); Blood Urine Negative (Negative); Color Urine Yellow (Yellow); Glucose Urine Negative (Negative); Ketones Urine Negative (Negative); Leukocyte Esterase Urine Negative (Negative); Nitrite Urine Negative (Negative); Protein Urine Negative (Negative); Specific Gravity Urine <= 1.005 (1.000-1.030); Urobilinogen Urine 0.2 (0.2-1.0)
[2024-10-18 20:03] LABS: Bacteria Urine Few; RBC Urine 0-2 (0-2); WBC Urine 0-2 (0-5)
--- NOTE | 2024-10-18 20:17 | ED_ITS ---
HPI - General Adult General Date Seen: 10/18/24 Chief complaint: Urogenital Problems, Female Stated complaint: kidney stones, uti Time Seen by Provider: 10/18/24 20:17 History of Present Illness HPI narrative: 44 yo F with past medical history of recent UTI, anxiety, irritable bowel syndrome, migraines, presenting to the ER today with concern for urinary tract infection. She says she was diagnosed with the UTI a few weeks ago and was treated with Macrobid. She feels like she completed antibiotic but symptoms are worsening. History from the patient is that she had dysuria, urgency, frequency, a few weeks ago and suspicious she might have had a UTI. At that time she was also having some achiness across her low back but not really suprapubic pain. She had an at home urinalysis test kit which was positive for leukocyte esterase. She did a virtual visit and was given a prescription for a 5 day course of Macrobid. After taking the antibiotic symptoms seemed to get better. For the past 5 or 6 days she has had recurring symptoms where she gets burning stinging pain like a razor blade at the opening of the urethra every time she urinates. Along with that she feels like she might be developing other symptoms and incurring a recurrence of her low back pain and sometimes pain radiating to her right lateral hip and up toward her right flank. She has had perhaps some subjective fevers and chills but no objective fever. Bowel movements have been normal. She has not had any vaginal bleeding other than she had a little bit of spotting about fiber 6 days ago after she had intercourse with her . No vaginal discharge. No other vaginal itching. Bowel movements normal. She had been checked for infections and STIs last urine or checkup and everything was clear. She is confident that she is in a monogamous stable relationship with her and has no concern for STIs. She is concerned that she may have another UTI and or possibly a kidney stone because her mother has had kidney stones. Because of the symptoms ongoing for several days she made appointment with her PCP for recheck on Wednesday, but given the significant burning with urination she could not wait any longer so came to the ER tonight. Related Data Home Medications ?Medication ?Instructions ?Recorded ?Confirmed cyclobenzaprine 10 mg tablet 10 mg PO TID 10/02/24 10/09/24 diazepam 10 mg tablet 20 mg PO BID PRN 10/02/24 10/09/24 metoprolol tartrate 25 mg tablet 12.5 mg PO BID 10/02/24 10/09/24 metoprolol tartrate 25 mg tablet 25 mg PO QDAY 10/02/24 10/09/24 diazepam 5 mg tablet mg PO 10/09/24 10/09/24 nitrofurantoin 1 cap PO BID 10/09/24 10/09/24 monohydrate/macrocrystals 100 mg capsule Previous Rx's ?Medication ?Instructions ?Recorded lidocaine HCl 2 % mucosal solution 1 applic mucous membrane Q4-6H PRN 10/18/24 (Lidocaine Viscous) pain #100 mL Allergies Allergy/AdvReac Type Severity Reaction Status Date / Time promethazine (From Phenergan) Allergy Severe Hives Verified 10/09/24 15:22 prochlorperazine (From Allergy Intermediate Hives Verified 10/09/24 15:22 Compazine) [facility] Medical History (Updated 10/18/24 @ 21:00 by Kane Mitchell MD) History of placenta previa ?Z87.59 - Personal history of other complications of , childbirth and the puerperium (ICD-10) COVID-19 (~2021) ?U07.1 - COVID-19 (ICD-10) History of atrial fibrillation ?Z86.79 - Personal history of other diseases of the circulatory system (ICD- 10) History of supraventricular tachycardia ?Z86.79 - Personal history of other diseases of the circulatory system (ICD- 10) Surgical History (Updated 10/09/24 @ 16:15 by Nora Pace PA-C) Hx of LASIK ?Z98.890 - Other specified postprocedural states (ICD-10) History of cardiac radiofrequency ablation (RFA) (~2020) ?Z98.890 - Other specified postprocedural states (ICD-10) History of endometrial ablation ?Z98.890 - Other specified postprocedural states (ICD-10) History of bilateral breast reduction surgery (~2012) ?Z98.890 - Other specified postprocedural states (ICD-10) History of ?Z98.891 - History of uterine scar from previous surgery (ICD-10) Family History (Updated 10/05/24 @ 11:07 by Sabiha Boyd PA-C) Other Thyroid disease Social History (Updated 10/12/24 @ 08:55 by Stella Nicholson ~ PANCHO) 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 Three living children(she notes that she did put 1 child up for adoption in the past) Nonsmoker, no alcohol use Denies recreational drug use Chronic benzodiazepine use What is your current living situation?: I presently have a place to live Problems where you live: no known problems In the past 12 months, utilities in danger of being shut off: no In past 12 months, lack of transportation kept you from medical appts, meetings, work, or getting things needed for daily living: no In the past 12 mos, have been you worried that your food would run out before you had money to buy more?: never true In the past 12 mos, the food you bought just didn't last and you didn't have money to buy more?: never true Smoking Status: Never smoker How often do you have a drink containing alcohol: never AUDIT-C Alcohol total score: 0 How often does anyone, including family, friends and others, physically hurt you : never How often does anyone, including family, friends and others, insult or talk down to you: never How often does anyone, including family, friends and others, threaten you with harm: rarely How often does anyone, including family, friends and others, scream or curse at you: never Health Related Social Needs: Other personal risk factors, not elsewhere classified (Z91.89) Exam Narrative: Exam Narrative: Constitutional: Appears well-developed and well-nourished. Alert. Conversant. Non toxic. HENT: Head: Atraumatic. Nose: Nose normal. Mouth/Throat: Oral mucosa is clear and moist. no trismus. Pharynx normal. Tonsils symmetric. No tonsillar enlargement, erythema, or exudate. Eyes: Conjunctivae normal. EOM normal. Pupils equal, round, and reactive to light. No scleral icterus. Neck: Normal range of motion. Neck supple. No tracheal deviation present. Cardiovascular: Normal rate, regular rhythm. No gallop. No friction rub. No murmur heard. Symmetric radial artery pulses Pulmonary/Chest: Effort normal. No stridor. No respiratory distress. No wheezes. No rales. No rhonchi . No tenderness. Abdominal: Soft. Bowel sounds normal. No distension. No mass. No tenderness. No rebound. No guarding. No CVA tenderness. Pelvic: Performed with female paper inserter. Structurally normal vulva, labia majora, perineum. Inspection of the labia minora reveals a 4-5 mm lesion that appears to be a linear abrasion on the upper portion of the left medial labia my Ly just adjacent to the external urethral meatus. No other lesions or vesicular lesions noted. We deferred internal pelvic exam given the finding of the lesion which likely explains her symptoms and the anticipated discomfort of trying to do a speculum exam with this lesion on the labia minora.. Musculoskeletal: RUE: Normal range of motion. No tenderness. No deformity LUE: Normal range of motion. No tenderness. No deformity RLE: Normal range of motion. No edema. No tenderness. No deformity LLE: Normal range of motion. No edema. No tenderness. No deformity Neurological: Alert and oriented to person, place, and time. Normal strength. CN II-VII intact. No sensory deficit. GCS eye subscore is 4. GCS verbal subscore is 5. GCS motor subscore is 6. Normal coordination Skin: Skin is warm and dry. No rash noted. No pallor. Normal capillary refill. Psychiatric: Normal mood. Normal affect. Const: Vital Signs, click to edit/add: Vital Signs - 24 hr 10/18/24 19:27 10/18/24 21:10 Temperature 99.3 F Pulse Rate [Pulse Oximeter] 106 H 89 Respiratory Rate 16 16 Blood Pressure [Le ft Upper Arm] 144/91 H 131/88 Pulse Oximetry 99 99 Course Vital Signs Vital signs: Initial Vital Signs Temperature 99.3 F 10/18/24 19:27 Temperature Source Temporal Artery Scan 10/18/24 19:27 Pulse Rate 106 H 10/18/24 19:27 Respiratory Rate 16 10/18/24 19:27 Blood Pressure 144/91 H 10/18/24 19:27 Blood Pressure Mean 108 H 10/18/24 19:27 Blood Pressure Position Sitting 10/18/24 19:27 Pulse Oximetry 99 10/18/24 19:27 Vital Signs Temperature 99.3 F 10/18/24 19:27 Pulse Rate 106 H 10/18/24 19:27 Respiratory Rate 16 10/18/24 19:27 Blood Pressure 144/91 H 10/18/24 19:27 Pulse Oximetry 99 10/18/24 19:27 Temperature 99.3 F 10/18/24 19:27 Pulse Rate 89 10/18/24 21:10 Respiratory Rate 16 10/18/24 21:10 Blood Pressure 131/88 10/18/24 21:10 Pulse Oximetry 99 10/18/24 21:10 Medications Administered Medications: Discontinued Medications Generic Name Dose Route Start Last Admin Trade Name Jemma PRN Reason Stop Dose Admin Lidocaine HCl 6 ml 10/18/24 21:03 10/18/24 21:05 Lidocaine Hcl 2 % Jelly (Top) Sterile TOPICAL 10/18/24 21:04 6 ml ONCE ONE Administration Medical Decision Making MDM Narrative Medical decision making narrative: 44-year-old female presenting to the ER today with severe burning razor blade like pain with urination it has been present for the past several days. She is concerned she may have a UTI. However clean catch urinalysis in the ER today looks very normal. No pyuria, bacteriuria, nitrite or leukocyte esterase to suggest UTI. Differential here is broad. Also consider kidney stones and she has been having some right hip/right lower back pain. However no hematuria on the urinalysis is present. Pelvic exam does show a lesion on the mucosal surface of the labia minora adjacent to her urethra which is likely the source for her pain. Discussed this in detail with the patient. It could be an abrasion or an injury from recent sexual intercourse. Differential would also include vaginal atrophy from menopause, as well as STI, herpes, among others. Patient is confident that she has not been exposed any STIs. Therefore, we will defer HSV swab or GC/CT swab at this time. Will treat supportively with topical lidocaine jelly (Uro jet provided here in the ER tonight). She will follow-up with her PCP on Wednesday for repeat pelvic exam and re-evaluation. Precautions for return to the ER reviewed. Lab Data Labs: Lab Results 10/18/24 Range/Units 19:26 Urine Color Yellow (Yellow) Urine Appearance Clear (Clear) Urine pH 6.0 (5.0-8.5) Ur Specific [place] <= 1.005 (1.000-1.030) Urine Protein Negative (Negative) Urine Glucose (UA) Negative (Negative) Urine Ketones Negative (Negative) Urine Blood Negative (Negative) Urine Nitrite Negative (Negative) Urine Bilirubin Negative (Negative) Urine Urobilinogen 0.2 (0.2-1.0) Ur Leukocyte Esterase Negative (Negative) Urine RBC 0-2 (0-2) Urine WBC 0-2 (0-5) Ur Squamous Epith Cells None (None-Few) Urine Bacteria Few A (None) Discharge Plan Discharge Clinical Impression: Abrasion of vagina Patient Disposition: Home, Self-Care Condition: Stable Additional Instructions: As we discussed, your exam shows a small 4 mm to 5 mm mucosal tear on the surface of the external vagina near the top of the inner surface of your left labia minora and near the opening of your urethra. We suspect this is probably a injury. This usually will heal over a few days. There is no signs of infection at this point. To help treat the pain use the topical lidocaine anesthetic gel every few hours as needed. Please follow-up with your doctor on Wednesday for repeat evaluation and repeat pelvic exam. If this lesion does not heal or if you develop other lesions, you may need further testing. If you have worsening symptoms or any concerns, please come back to the ER right away. Prescriptions: New lidocaine HCl [Lidocaine Viscous] 2 % solution 1 applic mucous membrane Q4-6H PRN (Reason: pain) Qty: 100 0RF No Action diazepam 10 mg tablet 20 mg PO BID PRN cyclobenzaprine 10 mg tablet 10 mg PO TID metoprolol tartrate 25 mg tablet 25 mg PO QDAY metoprolol tartrate 25 mg tablet 12.5 mg PO BID nitrofurantoin monohyd/m-cryst 100 mg capsule 1 cap PO BID diazepam 5 mg tablet PO Follow Up/Referrals: Nora Pace PA-C [Primary Care Provider] - Stand Alone Forms: [employer] Info Instructions
--- OUTSIDE RECORDS SUMMARY | 2024-10-18 20:59 | XMS_ITS | Encounter Summary ---
Author Organization [facility] Address [address] [place] [address] Care Team Providers Care Apartment Leasing Consultant Name Role Phone Criss Pathak MD Primary Care Provider [phone] Anias Lorenz PA-C Primary Care Provider [phone] No Ref-Primary, Physician Primary Care Provider aKne Louis MD Unavailable [phone] Anisa Lorenz PA-C Unavailable Renee Angeles NP Primary Care Prov ider Anisa Lorenz PA-C Unavailable Katie Disla MD Unavailable Anisa Lorenz PA-C Unavailable [phone] Katie Disla MD Unavailable Encounter Details Date Type Department Care Team (Late st Contact Info) Description 02/10/2011 [facility] [place] [facility] [address] [address] Jeancarlos Castellano Social History Tobacco Use Types Packs/Day Years Used Date Smoking Tobacco: Former Smokeless Tobacco: Never Comments:quit 2006 Alcohol Use Standard Drinks/Week Comments Yes 0 (1 standard drink = 0.6 oz pur e alcohol) rarely Comments No Sex and Gender Information Value Date Recorded Sex Assigned at Not on file 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 Gender Identity Not on file Sexual Orientation Not on file documented as of this encounter Plan of Treatment Not on file documented as of this encounter Visit Diagnoses Not on filedocumented in this encounter Care Teams Apartment Leasing Consultant Relationship Specialty [place] [address] [place] [address] PCP - General Family Practice 08/01/10 09/18/13 Anisa Lorenz PA-C [address] [place] [address] PCP - General Physician Physical Therapist Assistant 09/19/13 12/01/17 No Ref-Primary, Physician PCP - General 12/02/17 08/07/18 Anisa Lorenz PA-C [address] [place] [address] PCP - Assigned PCP 08/18/13 08/23/18 Renee Angeles NP [facility] [address] [id number] PCP - General Nurse Practitioner - Adult Health 08/08/18 Kane Louis MD Ophthalmology 12/02/17 Anisa Lorenz PA-C [address] [place] [address] Assigned PCP 08/18/13 11/19/18 Katie Disla MD [address] [facility] [place] [id number] Assigned PCP 11/20/18 11/18/19 Anisa Lorenz PA-C [address] [address] Assigned PCP 11/19/19 07/20/20 Katie Disla MD [address] [place], [place] [id number] Assigned PCP 07/21/20 11/21/21 documented as of this encounter
--- OUTSIDE RECORDS SUMMARY | 2024-10-18 20:59 | XMS_ITS | Encounter Summary ---
Author Organization [facility] Address [address] [place] [address] Care Team Providers Care Lawyer Criminal Name Role Phone Anisa Lorenz PA-C Primary Care Provider [phone] No Ref-Primary, Physician Primary Care Provider Kane Louis MD Unavailable [phone] Anisa Lorenz PA-C Unavailable Renee Angeles GAS SINGER Primary Care Prov ider Anisa Lorenz PA-C Unavailable Katie Disla MD Unavailable Anisa Lorenz PA-C Unavailable Katie Disla MD Unavailable Reason for Referral * Consultation - Closed Specialty Diagnoses / Procedures Referred By Jan clay Referred To Contact Diagnoses Biliary colic Anisa Lorenz PA-C Phone: tel: fax: [facility] [address] Phone: tel: fax: Referral ID Status Reason Start Date Expiration Date Visits Re quested Visits Authorized [id number] Closed 11/29/2015 11/28/2016 1 1 Comments Your provider has referred you to Gastroenterology Services. Procedure/Referral: REFERRAL ONLY - [facility]: [facility] ([facility]by partners with [facility] ([facility]) for consults and referrals. This order will be routed to [facility] for their office to contact the patient to arrange a future appointment. Patients may contact [facility] after 48 hours, if you have not been contacted) - [email or web address]/ Please be aware that coverage of these services is subject to the terms and limitations of your health insurance plan. Call member services at your health plan with any benefit or coverage questions. Any procedures must be performed at a [facility] facility OR coordinated by your clinic's referral office. Please bring the following with you to your appointment: (1) Any X-Rays, CTs or MRIs which have been performed. Contact the facility where they were done to arrange for pick pack worker prior to your scheduled appointment. Any new CT, MRI or other procedures ordered by your specialist must be performed at a [facility] facility or coordinated by your clinic's referral office. (2) List of current medications (3) This referral request (4) Any documents/labs given to you for this referral Reason for Visit * Reason Onset Date Comments MyChart Communication 11/28/2015 Abdominal pain Encounter Details Date Type Department Care Team (Late st Contact Info) Description 11/28/2015 [facility] Advice [address] [address] Anisa Lorenz PA-C [address] [address] Karley Communication (Abdominal pain) 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 Female 4:17 AM WAIST CUTTER Gender Identity Not on file Sexual Orientation Not on file documented as of this encounter Miscellaneous Notes * Telephone Encounter - Lilibeth Hernadez RN - 11/28/2015 3:27 PM CDT Sent patient [employer] response notifying of Dr. Pathak's note below. Gail Hernadez RN, BSN * Telephone Encounter - Criss Pathak MD - 11/28/2015 3:21 PM CDT Ask if this can wait until tomorrow. Until CJ is back. Criss Pathak MD [facility] [phone] * Telephone Encounter - Lilibeth Hernadez RN - 11/28/2015 2:26 PM CDT Routing to Dr. Pathak to advise in the absence of CJ: Please review/advise on pt's Zitet message. Pt was seen 11/20/15 for abdominal [...] Total Score: 0 07/26/19 16 7:58 AM WAIST CUTTER documented as of this encounter Care Teams Lawyer Criminal Relationship Specialty Start Date End Date Anisa Lorenz PA-C PCP - General Physician Take Out Waiter 09/19/13 12/01/17 No Ref-Primary, Physician PCP - General 12/02/17 08/07/18 Anisa Lorenz PA-C [address] [place], [place] [id number] PCP - Assigned PCP 08/18/13 08/23/18 Renee Angeles, [facility] [address] [id number] PCP - General Nurse Practitioner - Adult Health 08/08/18 Kane Louis MD Ophthalmology 12/02/17 Anisa Lorenz PA-C [address] [place] [address] Assigned PCP 08/18/13 11/19/18 Katie Disla MD [address] [place] [address] Assigned PCP 11/20/18 11/18/19 Anisa Lorenz PA-C [address] [place] [address] Assigned PCP 11/19/19 07/20/20 Katie Disla MD [address] [place] [address] Assigned PCP 07/21/20 11/21/21 documented as of this encounter
--- OUTSIDE RECORDS SUMMARY | 2024-10-18 20:59 | XMS_ITS | Encounter Summary ---
Author Organization [facility] Address [address] [place] [address] Care Team Providers Care Restrictive Preparation Operator Name Role Phone Anisa Lorenz PA-C Primary Care Provider [phone] No Ref-Primary, Physician Primary Care Provider Kane Louis MD Unavailable [phone] Anisa Lorenz PA-C Unavailable Renee Angeles MUCKER COFFERDAM Primary Care Prov ider Anisa Lorenz PA-C Unavailable Katie Disla MD Unavailable Anisa Lorenz PA-C Unavailable Katie Disla MD Unavailable Reason for Visit * Reason Onset Date Comments Refill Request 11/05/2013 lorazepam Encounter Details Date Type Department Care Team (Late st Contact Info) Description 11/05/2013 [facility] Refill [facility] [address] [place] [address] Anisa Lorenz PA-C [address] [facility] [address] [place], [place] [address] Refill Request (lorazepam) Social History Tobacco Use Types Packs/Day Years Used Date Smoking Tobacco: Former Smokeless Tobacco: Never Comments:quit 2006 Alcohol Use Standard Drinks/Week Comments Yes 0 (1 standard drink = 0.6 oz pur e alcohol) rarely Comments No Sex and Gender Information Value Date Recorded Sex Assigned at Not on file 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 Last OV and filled 10/25/13, qty 30. Unable to refill per [facility] protocol, to for auth. * Telephone Encounter - Ana Estrada RN - 11/06/2013 10:00 AM CDTMessage from [employer]: Original authorizing provider: Anias Lorenz PA-C, NORA Bridges would like a refill of the following medications: LORazepam (ATIVAN) 1 MG tablet [Anisa Lorenz PA-C, NORA] Preferred pharmacy: [facility] [address] [address] Comment: documented in this encounter Plan of Treatment Not on file documented as of this encounter Visit Diagnoses Diagnosis ANNA (generalised anxiety disorder) Generalized anxiety disorder documented in this encounter Care Teams Restrictive Preparation Operator Relationship Specialty Start Date End Date Anisa Lorenz PA-C PCP - General Physician Cigar Packer And Sorter 09/19/13 12/01/17 No Ref-Primary, Physician PCP - General 12/02/17 08/07/18 Anisa Lorenz PA-C [address] [place] [address] PCP - Assigned PCP 08/18/13 08/23/18 Renee Angeles, [facility] [address] [address] PCP - General Nurse Practitioner - Adult Health 08/08/18 Kane Louis MD Ophthalmology 12/02/17 Anisa Lorenz PA-C [address] [place] [address] Assigned PCP 08/18/13 11/19/18 Katie Disla MD [address] [place] [address] Assigned PCP 11/20/18 11/18/19 Anisa Lorenz PA-C [address] [place] [address] Assigned PCP 11/19/19 07/20/20 Katie Disla MD [address] [place] [address] Assigned PCP 07/21/20 11/21/21 documented as of this encounter
--- OUTSIDE RECORDS SUMMARY | 2024-10-18 20:59 | XMS_ITS | Encounter Summary ---
Author Organization [facility] Address [address] [place] [address] Care Team Providers Care Collar Sewer Name Role Phone Criss Pathak MD Primary Care Provider [phone] Anisa Lorenz PA-C Primary Care Provider [phone] No Ref-Primary, Physician Primary Care Provider Kane Louis MD Unavailable [phone] Anisa Lorenz PA-C Unavailable Renee Angeles NP Primary Care Prov ider Anisa Lorenz PA-C Unavailable Katie Disla MD Unavailable Anisa Lorenz PA-C Unavailable [phone] Katie Disla MD Unavailable Encounter Details Date Type Department Care Team (Late st Contact Info) Description 07/25/2013 [facility] [address] [address] Jeancarlos Castellano Social History Tobacco Use Types Packs/Day Years Used Date Smoking Tobacco: Former Smokeless Tobacco: Never Comments:quit 2006 Alcohol Use Standard Drinks/Week Comments Yes 0 (1 standard drink = 0.6 oz pur e alcohol) rarely Comments No Sex and Gender Information Value Date Recorded Sex Assigned at Not on file Legal Sex Female 4:17 AM SANDBLAST CARVER Gender Identity Not on file Sexual Orientation Not on file documented as of this encounter Plan of Treatment Not on file documented as of this encounter Visit Diagnoses Not on filedocumented in this encounter Care Teams Collar Sewer Relationship Specialty [place] [address] [place] [address] PCP - General Family Practice 08/01/10 09/18/13 Anisa Lorenz PA-C [address] [place] [address] PCP - General Physician Retail Warehouse Associate 09/19/13 12/01/17 No Ref-Primary, Physician PCP - General 12/02/17 08/07/18 Anisa Lorenz PA-C [address] [place] [address] PCP - Assigned PCP 08/18/13 08/23/18 Renee Angeles NP [facility] [address] [place] [address] PCP - General Nurse Practitioner - Adult Health 08/08/18 Kane Louis MD Ophthalmology 12/02/17 Anisa Lorenz PA-C [address] [place] [id number] Assigned PCP 08/18/13 11/19/18 Katie Disla MD [address] [facility] [place] [id number] Assigned PCP 11/20/18 11/18/19 Anisa Lorenz PA-C [address] [address] Assigned PCP 11/19/19 07/20/20 Katie Disla MD [address] [place], [place] [id number] Assigned PCP 07/21/20 11/21/21 documented as of this encounter
--- OUTSIDE RECORDS SUMMARY | 2024-10-18 20:59 | XMS_ITS | Encounter Summary ---
Author Organization [facility] Address [address] [place] [address] Care Team Providers Care Hook Loader Name Role Phone No Primary/Referring, Phy Primary Care Provider Unavailable Encounter Details Date Type Department Care Team (Late st Contact Info) Description 09/26/2024 Notes/Orders Security Contact Ish Davalso, IFEOMA, HEALTH AND WELLNESS COORDINATOR [address] [place] [address] Encounter for long-term (current) use [...] medications documented in this encounter Care Teams Hook Loader Relationship Specialty Start Date End Date No Primary/Referring, Phy PCP - General 11/19/14 documented as of this encounter
--- OUTSIDE RECORDS SUMMARY | 2024-10-18 20:59 | XMS_ITS | Encounter Summary ---
Author Organization [facility] Address [address] [place] [address] Care Team Providers Care Supervisor Printing And Stamping Name Role Phone No Primary/Referring, Phy Primary [...] on filedocumented in this encounter Care Teams Supervisor Printing And Stamping Relationship Specialty Start Date End Date No Primary/Referring, Phy PCP - General 11/19/14 documented as of this encounter
--- OUTSIDE RECORDS SUMMARY | 2024-10-18 20:59 | XMS_ITS | Encounter Summary ---
Author Organization [facility] Address [address] [place] [address] Care Team Providers Care Interactive Graphic Designer Name Role Phone Anisa Lorenz PA-C Primary Care Provider [phone] No Ref-Primary, Physician Primary Care Provider Kane Louis MD Unavailable [phone] Anisa Lorenz PA-C Unavailable Renee Angeles CORRESPONDENCE RENEW CLERK Primary Care Prov ider Anisa Lorenz PA-C Unavailable Katie Disla MD Unavailable Anisa Lorenz PA-C Unavailable Katie Disla MD Unavailable Reason for Visit * Reason Onset Date Comments Refill Request 01/08/2015 Roxanna Dodson Encounter Details Date Type Department Care Team (Late st Contact Info) Description 01/08/2015 MyC Refill [facility] [address] [place] [address] Anisa Lorenz PA-C [address] [place], [place] [address] Refill Request (Roxanna Dodson) 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 * Telephone Encounter - Maikel Cullen RN - 01/08/2015 2:18 PM CDTMessage from [facility]: Original authorizing provider: Anisa Lorenz PA-C, NORA Funes Cyrus would like a refill of the following medications: lidocaine-prilocaine (EMLA) cream [Anisa Lorenz PA-C, NORA] oxyCODONE-acetaminophen (PERCOCET) 5-325 MG per tablet [Anisa Lorenz PA-C, NORA] Preferred pharmacy: [facility] [address] Comment: Brandon Lorenz- I have my [...] encounter documented in this encounter Care Teams Interactive Graphic Designer Relationship Specialty Start Date End Date Anisa Lorenz PA-C PCP - General Physician Active Directory Specialist 09/19/13 12/01/17 No Ref-Primary, Physician PCP - General 12/02/17 08/07/18 Anisa Lorenz PA-C [address] [place], [place] [address] PCP - Assigned PCP 08/18/13 08/23/18 Renee Angeles, [facility] [address] [address] PCP - General Nurse Practitioner - Adult Health 08/08/18 Kane Louis MD MD Ophthalmology 12/02/17 Anisa Lorenz, PA-C [address] [place] [address] Assigned PCP 08/18/13 11/19/18 Katie Disla MD [address] [place] [address] Assigned PCP 11/20/18 11/18/19 Anisa Lorenz, PA-C [address] [place] [address] Assigned PCP 11/19/19 07/20/20 Katie Disla MD [address] [place] [address] Assigned PCP 07/21/20 11/21/21 documented as of this encounter
--- OUTSIDE RECORDS SUMMARY | 2024-10-18 20:59 | XMS_ITS | Clinical Summary ---
Author Organization [facility] Address [address] [place] [address] Care Team Providers Care Telegraph Service Clerk Name Role Phone No Primary/Referring, Phy Primary [...] for each transition of care or referral. [employer] Allergies Active Allergy Reactions Criticality Noted Date [...] 11:10 AM CDT Lab Visit Laboratory at [address] [address] Encounter for long-term (current) use of medications 09/26/2024 Notes/Orders Security Contact Ish Davalos, BALING MACHINE OPERATOR, PUBLIC SPACE ATTENDANT Encounter for long-term (current) use of medications [...] 36.9 C (98.5 F) 05/20/2024 12:45 PM TERRAZZO LAYER HELPER Respiratory Rate 17 03/16/2024 7:32 PM CDT Oxygen Saturation 100% 03/16/2024 7:32 PM CDT Inhaled Oxygen Concentration - - Weight 63 kg (139 lb) 05/20/2024 12:45 PM TERRAZZO LAYER HELPER Height 160 cm (5' 3) 05/20/2024 12:45 PM TERRAZZO LAYER HELPER Body Mass Index 24.62 05/20/2024 12:45 PM TERRAZZO LAYER HELPER Plan of Treatment Health Maintenance Due Date [...] LDL (IF NEEDED) Routine 06/07/2006 10:55 AM TERRAZZO LAYER HELPER HIV ANTIBODY Routine 08/19/2005 7:35 AM TERRAZZO LAYER HELPER from Last 3 Months or Most Recently Relevant to Health Maintenance Results * (ABNORMAL) Rapid Drug Panel, Urine with THC (10/03/2024 11:05 AM CDT) [facility] Amphetamines Screen Not Detected Not Detected 10/04/2024 7:00 AM [facility] Barbiturates Screen Not Detected Not Detected 10/04/2024 7:00 AM [facility] Benzodiazepines Screen Presumptive Positive(A) Not Detected 10/04/2024 7:00 AM [facility] Buprenorphine Screen Not Detected Not Detected 10/04/2024 7:00 AM [facility] Cocaine Metabolite Screen Not Detected Not Detected 10/04/2024 7:00 AM [facility] Methadone Screen Not Detected Not Detected 10/04/2024 7:00 AM [facility] Opiates Screen Not Detected Not Detected 10/04/2024 7:00 AM [facility] Oxycodone Screen Not Detected Not Detected 10/04/2024 7:00 AM [facility] Phencyclidine (PCP) Screen Not Detected Not Detected 10/04/2024 7:00 AM [facility] THC (Marijuana) Metab Screen Not Detected Not Detected 10/04/2024 7:00 AM [facility] Creatinine, Urine, Random 170 >20 mg/dL 10/04/2024 7:00 AM [facility] Urine Non-blood Collection / Unknown 10/03/2024 11:05 AM CDT 10/03/2024 11:05 AM [facility] - 10/04/2024 7:00 AM CDT The absence [...] or employment use. us Ish Davalos APRN, PUBLIC SPACE ATTENDANT LAB_[place] [address], [facility] * Pap Smear (01/30/2008 9:32 AM CDT) PAP Smear Liquid Based SEE TEXT No normal range HP CONVERSION Comment: Patient: ROSALINE BRIDGES CERVICAL CYTOLOGY REPORT Pathology # [id number] Date Obtained: Date Received: CYTOLOGIC IMPRESSION: Negative for intraepithelial lesion or malignancy. Verified 02/02/08 by: MADISON (electronic signature) ADDITIONAL DATA LMP: CLINICAL HIST LIQUID BASED PAP CERVICAL SPECIMEN ADEQUACY: Satisfactory. ENDOCERVICAL CELLS: Present. 01/30/2008 9:32 AM CDT Ish Escobar MD LAB_1 Final Result HP CONVERSION * Lipid Panel and Direct LDL(If Needed) (06/07/2006 10:55 AM TERRAZZO LAYER HELPER) Cholesterol/HDL Ratio Screen 3.1 No normal range HP CONVERSION Cholesterol 156 <200 mg/dL HP CONVERSION HDL Cholesterol 51 40 - 60 mg/dL HP CONVERSION Triglycerides 54 0 - 149 mg/dL HP CONVERSION LDL Calculated 94 0 - 130 mg/dL HP CONVERSION Comment: 06/07/2006 10:5 5 AM TERRAZZO LAYER HELPER Ish Flores MD LAB_1 Final Result Performing Organization Address City/State/[facility] Co de Phone Number HP CONVERSION * HIV 1/2 ANTIBODY (08/19/2005 7:35 AM TERRAZZO LAYER HELPER) HIV 1/2 Antibody Non-React hugo NR [facility] Comment:Performed at [facility] 08/19/2005 7:35 AM TERRAZZO LAYER HELPER 08/19/2005 7:49 AM TERRAZZO LAYER HELPER Keiko Albright PA-C LAB_1 Final Result [place], [place] [phone] from Last 3 Months or Most Recently Relevant to Health Maintenance Care Teams Telegraph Service Clerk Relationship Specialty Start Date End Date No Primary/Referring, Phy PCP - General 11/19/14
--- OUTSIDE RECORDS SUMMARY | 2024-10-18 20:59 | XMS_ITS | Encounter Summary ---
Author Organization [facility] Address [address] [place] [address] Care Team Providers Care Advertising Sales Consultant Name Role Phone No Primary/Referring, Phy Primary Care Provider Unavailable Encounter Details Date Type Department Care Team (Late st Contact Info) Description 10/03/2024 11:10 AM CDT Lab Visit Laboratory at [facility] [address] [place] [address] Encounter for long-term (current) use of medications [...] Urine with THC (10/03/2024 11:05 AM CDT) [facility] Amphetamines Screen Not Detected Not Detected 10/04/2024 7:00 AM [facility] Barbiturates Screen Not Detected Not Detected 10/04/2024 7:00 AM [facility] Benzodiazepines Screen Presumptive Positive(A) Not Detected 10/04/2024 7:00 AM [facility] Buprenorphine Screen Not Detected Not Detected 10/04/2024 7:00 AM [facility] Cocaine Metabolite Screen Not Detected Not Detected 10/04/2024 7:00 AM [facility] Methadone Screen Not Detected Not Detected 10/04/2024 7:00 AM [facility] Opiates Screen Not Detected Not Detected 10/04/2024 7:00 AM [facility] Oxycodone Screen Not Detected Not Detected 10/04/2024 7:00 AM [facility] Phencyclidine (PCP) Screen Not Detected Not Detected 10/04/2024 7:00 AM [facility] THC (Marijuana) Metab Screen Not Detected Not Detected 10/04/2024 7:00 AM [facility] Creatinine, Urine, Random 170 >20 mg/dL 10/04/2024 7:00 AM [facility] Urine Non-blood Collection / Unknown 10/03/2024 11:05 AM T 10/03/2024 11:05 AM [facility] - 10/04/2024 7:00 AM [facility] The absence of expected drug(s) and/or drug metabolite(s) may indicate non-compliance, inappropriate timing of specimen collection relative to drug administration, poor drug absorption, diluted/adulterated urine or limitations of testing. The concentration must be greater than or equal to the cutoff concentration to be reported as positive. For medical purposes only: not valid for forensic, legal, or employment use. us Ish Davalos REFRIGERATION REPAIR SUPERVISOR, JOB PLACEMENT OFFICER LAB_1 Final Result [address] [address], [facility] documented in this encounter Visit Diagnoses Diagnosis Encounter for long-term (current) use of medications Encounter for long-term (current) use of other medications documented in this encounter Care Teams Advertising Sales Consultant Relationship Specialty Start Date End Date No Primary/Referring, Phy PCP - General 11/19/14 documented as of this encounter
--- OUTSIDE RECORDS SUMMARY | 2024-10-18 20:59 | XMS_ITS | Encounter Summary ---
Author Organization [facility] Address [address] [place] [address] Care Team Providers Care Tile Presser Name Role Phone Anisa Lorenz PA-C Primary Care Provider [phone] No Ref-Primary, Physician Primary Care Provider Kane Louis MD Unavailable [phone] Anisa Lorenz PA-C Unavailable Renee Angeles AIRCRAFT ASSEMBLER Primary Care Prov ider Anisa Lorenz PA-C Unavailable Katie Disla MD Unavailable Anisa Lorenz PA-C Unavailable Katie Disla MD Unavailable Reason for Visit * Reason Onset Date Comments MyChart Communication 10/13/2013 zoloft Encounter Details Date Type Department Care Team (Late st Contact Info) Description 10/13/2013 MyC Medical Advice [facility] [address] [place] [address] Anisa Lorenz PA-C [address] [facility] [address] [place], [place] [address] MyChart Communication (zoloft) 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 Female 4:17 AM CASE MANAGEMENT DIRECTOR Gender Identity Not on file Sexual Orientation Not on file documented as of this encounter Plan of Treatment Not on file documented as of this encounter Visit Diagnoses Not on filedocumented in this encounter Care Teams Tile Presser Relationship Specialty Start Date End Date Anias Lorenz PA-C PCP - General Physician Animal Science Professor 09/19/13 12/01/17 No Ref-Primary, Physician PCP - General 12/02/17 08/07/18 Anisa Lorenz PA-C [address] [place] [address] PCP - Assigned PCP 08/18/13 08/23/18 Renee Angeles NP [facility] [address] [address] PCP - General Nurse Practitioner - Adult Health 08/08/18 Kane Louis MD Ophthalmology 12/02/17 Anisa Lorenz PA-C [address] [place] [address] Assigned PCP 08/18/13 11/19/18 Katie Disla MD [address] [facility] [address] [place] [address] Assigned PCP 11/20/18 11/18/19 Anisa Lorenz PA-C [address] [facility] [address] [place] [address] Assigned PCP 11/19/19 07/20/20 Katie Disla MD [address] [facility] [place] [address] Assigned PCP 07/21/20 11/21/21 documented as of this encounter
--- OUTSIDE RECORDS SUMMARY | 2024-10-18 20:59 | XMS_ITS | Encounter Summary ---
Author Organization [facility] Address [address] [place] [address] Care Team Providers Care Occupational Medicine Specialist Name Role Phone Anisa Lorenz PA-C Primary Care Provider [phone] No Ref-Primary, Physician Primary Care Provider Kane Louis MD Unavailable [phone] Anisa Lorenz PA-C Unavailable Renee Angeles SOCIETY REPORTER Primary Care Prov ider Anisa Lorenz PA-C Unavailable Katie Disla MD Unavailable Anisa Lorenz PA-C Unavailable Katie Disla MD Unavailable Reason for Visit * Reason Onset Date Comments MyChart Communication 12/03/2014 refill cyc lobenzaprine Encounter Details Date Type Department Care Team (Late st Contact Info) Description 12/03/2014 MyC Medical Advice [facility] [address] [place] [address] Anisa Lorenz PA-C [address] [facility] [address] [place], [place] [address] MyChart Communication (refill cyclobenzapr... 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 Gender Identity Not on file Sexual Orientation Not on file documented as of this encounter Plan of Treatment Not on file documented as of this encounter Visit Diagnoses Diagnosis Acute low back pain- Primary Lumbago documented in this encounter Care Teams Occupational Medicine Specialist Relationship Specialty Start Date End Date Anisa Lorenz PA-C PCP - General Physician Sugar Boiler 09/19/13 12/01/17 No Ref-Primary, Physician PCP - General 12/02/17 08/07/18 Anisa Lorenz PA-C [address] [place] [address] PCP - Assigned PCP 08/18/13 08/23/18 Renee Angeles NP [facility] [address] [address] PCP - General Nurse Practitioner - Adult Health 08/08/18 Kane Louis MD Ophthalmology 12/02/17 Anisa Lorenz PA-C [address] [place] [address] Assigned PCP 08/18/13 11/19/18 Katie Disla MD [address] [facility] [place] [id number] Assigned PCP 11/20/18 11/18/19 Anisa Lorenz PA-C [address] [address] Assigned PCP 11/19/19 07/20/20 Katie Disla MD 8675 [facility] [place] [address] Assigned PCP 07/21/20 11/21/21 documented as of this encounter
--- OUTSIDE RECORDS SUMMARY | 2024-10-18 21:00 | XMS_ITS | Clinical Summary ---
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 Gender Identity Not on file Sexual Orientation [...] - 199 mg/dL 10/19/2022 2:08 PM CDT [facility] Triglycerides 110 0 - 149 mg/dL 10/19/2022 2:08 PM CDT [facility] HDL Cholesterol 58 >39 mg/dL 2:08 PM CDT [facility] VLDL Cholesterol Sami 20 5 - 40 mg/dL 10/19/2022 2:08 PM CDT [facility] LDL Chol Calc (NIH) 130(H) 0 - 99 mg/dL 10/19/2022 2:08 PM CDT [facility] Blood BLOOD SPECIMEN / Unknown Venipuncture / Unknown 10/16/2022 3:01 PM CDT 10/16/2022 3:01 PM CDT [facility] ([facility]) - 10/19/2022 2:08 PM CDT Performed at: [address] [place] [address] [address] [place], [place] [id number] Purification Operator Helper: José Luis Saleh MD, Phone: [phone] us Juan Cee MD SEND OUTS Final R esult [facility]) [facility] [place] [address], * LC HCV ANTIBODY RFX TO QUANT PCR (10/16/2022 3:01 PM CDT) Pathologist [facility] HCV Ab Non Reactive Non Reactive 10/20/2022 10:06 PM CDT [facility] Blood BLOOD SPECIMEN / Unknown Venipuncture / Unknown 10/16/2022 3:01 PM CDT 10/16/2022 3:01 PM CDT [facility] ([facility]) - 10/20/2022 10:06 PM CDT Performed at: [address] [id number] Purification Operator Helper: José Luis Saleh MD, Phone: [phone] Juan Cee MD LABORATORY Final R esult Performing Organization Address City/[facility]/ZIP Co de Phone Number [facility] ([facility]) [address] [place] [address], * LC HIV-1/O/2, 4TH GENERATION (10/16/2022 3:01 PM CDT) HIV Scr 4th Gen Non Reactive Non Reactive 10/20/2022 10:[address] [facility] ([facility]) Comment: HIV Negative HIV-1/HIV-2 antibodies and HIV-1 p24 antigen were NOT detected. There is no laboratory evidence of HIV infection. Blood BLOOD SPECIMEN / Unknown Venipuncture / Unknown 10/16/2022 3:01 PM CDT 10/16/2022 3:01 PM CDT Narrative [facility] ([facility]) - 10/20/2022 10:06 PM CDT Performed at: [address] [place] [id number] Purification Operator Helper: José Luis Saleh MD, Phone: [phone] Juan Cee MD LABORATORY Final R esult Performing Organization Address [facility]/ZIP Co de Phone Number [facility] ([facility]) [address] [place] [address], [place] * XR MAMMO YULISSA BILAT SCREEN [...] care provider. XR MAMMO YULISSA BILAT SCREEN [[id number]] CLINICAL HISTORY: This is an asymptomatic 42 y.o. patient. INDICATION FOR EXAM: Mammogram Screening. TECHNIQUE: CC & MLO views were obtained. This study was evaluated with the assistance of Computer-Aided Detection. Breast Tomosynthesis was used in interpretation. COMPARISON FILMS: Yes 01/25/15 [facility] 11/13/09 [facility] FINDINGS: The breasts are heterogeneously dense, which [...] Other (specify in commen ts): Care Teams Board Of Directors Relationship Specialty Start Date End Date Pcp, No . PCP - General 07/12/24
--- OUTSIDE RECORDS SUMMARY | 2024-10-18 21:00 | XMS_ITS | Encounter Summary ---
Author Organization [facility] Address [address] [place] [address] Care Team Providers Care Operation Research Analyst Name Role Phone Criss Pathak MD Primary Care Provider Anisa Lorenz PA-C Primary Care Provider [phone] No Ref-Primary, Physician Primary Care Provider Kane Louis MD Unavailable [phone] Anisa Lorenz PA-C Unavailable Renee Angeles NP Primary Care Prov ider Anisa Lorenz PA-C Unavailable Katie Disla MD Unavailable Anisa Lorenz PA-C Unavailable [phone] Katie Disla MD Unavailable Encounter Details Date Type Department Care Team (Late st Contact Info) Description 02/28/2013 [facility] [address] [address] Jeancarlos Castellano Social History Tobacco Use Types Packs/Day Years Used Date Smoking Tobacco: Former Smokeless Tobacco: Never Comments:quit 2006 Alcohol Use Standard Drinks/Week Comments Yes 0 (1 standard drink = 0.6 oz pur e alcohol) rarely Comments No Sex and Gender Information Value Date Recorded Sex Assigned at Not on file 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 Gender Identity Not on file Sexual Orientation Not on file documented as of this encounter Plan of Treatment Not on file documented as of this encounter Visit Diagnoses Not on filedocumented in this encounter Care Teams Operation Research Analyst Relationship Specialty [place] [address] [place] [address] PCP - General Family Practice 08/01/10 09/18/13 Anisa Lorenz PA-C [address] [place] [address] PCP - General Physician Mica Laminating Machine Feeder 09/19/13 12/01/17 No Ref-Primary, Physician PCP - General 12/02/17 08/07/18 Anisa Lorenz PA-C [address] [place] [address] PCP - Assigned PCP 08/18/13 08/23/18 Renee Angeles NP [facility] [address] [place] [address] PCP - General Nurse Practitioner - Adult Health 08/08/18 Kane Louis MD Ophthalmology 12/02/17 Anisa Lorenz PA-C [address] [place] [id number] Assigned PCP 08/18/13 11/19/18 Katie Disla MD [address] [facility] [place] [id number] Assigned PCP 11/20/18 11/18/19 Anisa Lorenz PA-C [address] [address] Assigned PCP 11/19/19 07/20/20 Katie Disla MD [address] [place], [place] [id number] Assigned PCP 07/21/20 11/21/21 documented as of this encounter
--- OUTSIDE RECORDS SUMMARY | 2024-10-18 21:00 | XMS_ITS | Clinical Summary ---
Author Organization [facility] Address [address] [place] [address] Care Team Providers Care Outreach Rep Name Role Phone Kane Louis MD Unavailable [phone] Renee Angeles GROUP HOME PARAPROFESSIONAL Primary Care Prov ider Allergies Active Allergy [...] by this provider, or covering partner. Medication(s): [place]. 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 Gender Identity Not on file Sexual Orientation [...] Plan of Treatment Not on file Insurance [facility] Advance Directives For more information, please contact: [phone] * Full Code (Latest Code Status on File) Date Activated Date Inactivated Comments 01/28/2014 10:34 AM 05/31/2019 6:59 AM * Full Code Date Activated Date Inactivated Comments 01/28/2014 3:35 AM 01/28/2014 10:34 AM Care Teams Outreach Rep Relationship Specialty Start Date End Date Renee Angeles NP [facility] [address] [address] PCP - General Nurse Practitioner - Adult Health 08/08/18 Kane Louis MD Ophthalmology 12/02/17
[2024-10-18] MEDS: lidocaine HCL 2 % JELLY (TOP) STERILE 6 ML TOPICAL (21:05)
[2024-10-18 21:10] VITALS: BP 131/88; PULSE 89; RESP 16; O2SAT 99
== END 2024-10-18 21:11 | disposition home or self-care (01) ==
PROVIDERS: Emergency Provider Emergency Medicine; PCP Physician Assistant Medical
DX: S30.814A Abrasion of vagina and vulva, initial encounter (principal); R30.0 Dysuria; M54.9 Dorsalgia, unspecified
CPT/HCPCS: 81001; 81513; 87086; 87481; 87491; 87591; 87661; 99282; 99283

== ENCOUNTER 2024-11-30 13:32 | Outpatient (CLI) | payer BC, SELFPAY | END 2024-11-30 13:33 | disposition home or self-care (01) | PROVIDERS: PCP Physician Assistant Medical; Visit Provider Physician Assistant Medical | DX: I47.9 Paroxysmal tachycardia, unspecified (principal); K58.9 Irritable bowel syndrome, unspecified; R23.2 Flushing; Z13.79 Encounter for other screening for genetic and chromosomal anomalies | CPT/HCPCS: 80053; 81291; 82306; 82784; 83090; 84443; 86140; 86231; 86258; 86364; 86376; 86618 ==

== ENCOUNTER 2024-12-11 14:05 | Outpatient (CLI) | payer BC, SELFPAY ==
--- NOTE | 2024-12-11 14:00 | CRLHL7_ITS ---
For Patients: As a result of the Century Cures Act, medical imaging exams and procedure reports are released immediately into your electronic medical record. You may view this report before your referring provider. If you have questions, please contact your health care provider. INDICATION: IRREGULAR MENSTRUATION COMPARISON: None. TECHNIQUE: 2D hardy-scale and color Doppler images were acquired of the pelvis using a transabdominal and transvaginal approach. Transvaginal imaging performed to better visualize the endometrial stripe and ovaries. FINDINGS: Posterior subserosal fibroid on the right measures 13 x 9 x 12 millimeters. Posterior intramural fibroid in the fundus measures 10 x 6 x 10 millimeters. Uterus measures 8.0 cm in length by 4.0 cm in AP diameter by 4.6 cm in transverse dimension. Post ablation changes to the endometrium results in decreased conspicuity. The right ovary measures 3.7 x 2.0 x 2.0 cm in size and the left ovary measures 3.1 x 1.5 x 2.6 cm. The ovaries demonstrate normal arterial and venous blood flow on color Doppler analysis. There are no suspicious fluid collections within the cul-de-sac. IMPRESSION: Post endometrial ablation changes. Endometrium is ill-defined but not thickened. No endometrial fluid. Two posterior uterine fibroids in the fundus measure up to 1.3 cm. Dictated by Kojo Denton MD @ 12/11/2024 2:50:19 PM (Electronically Signed)
== END 2024-12-11 14:06 | disposition home or self-care (01) ==
LOC: US 14:06
PROVIDERS: PCP Physician Assistant Medical; Visit Provider Physician Assistant Medical
DX: N92.6 Irregular menstruation, unspecified (principal); D25.9 Leiomyoma of uterus, unspecified
CPT/HCPCS: 76830; 76856

== ENCOUNTER 2025-01-30 18:38 | Outpatient (CLI) | payer BC, SELFPAY ==
--- NOTE | 2025-01-30 19:00 | CRLHL7_ITS ---
For Patients: As a result of the Century Cures Act, medical imaging exams and procedure reports are released immediately into your electronic medical record. You may view this report before your referring provider. If you have questions, please contact your health care provider. INDICATION: BILATERAL SCREENING MAMMOGRAM, ASYMPTOMATIC 44 Y/O FEMALE COMPARISON: 03/03/2022 TECHNIQUE: Digital mammogram in CC and MLO projections including computer-aided detection (CAD) and tomosynthesis. BREAST COMPOSITION: The breasts are heterogeneously dense, which may obscure small masses. FINDINGS: No suspicious findings. ASSESSMENT: BI-RADS 1 Negative RECOMMENDATION: Annual screening mammogram. A lay language report of this examination will be provided to the patient. Dictated by: Kojo Denton MD @ 02/02/2025 11:47:31 (Electronically Signed)
== END 2025-01-30 18:39 | disposition home or self-care (01) ==
LOC: MAMMO 18:38
PROVIDERS: PCP Physician Assistant Medical; Visit Provider Physician Assistant Medical
DX: Z12.31 Encounter for screening mammogram for malignant neoplasm of breast (principal); R92.333 Mammographic heterogeneous density, bilateral breasts
CPT/HCPCS: 77063; 77067